=== PATIENT | female | born 1960 | race Caucasian/White ===

== ENCOUNTER → 2020-04-09 10:14 | Outpatient (CLI) | payer OTHER, SELFPAY ==
--- NOTE | ~2020-04-09 | DEXA_ITS ---
Bone Density Report Name: Justin Delarosa Age: 60 Sex: Female Ethnicity: White Date of : 1960 Indication: osteopenia; height loss; Referring Provider: [place], Joanne Cowan Study: Bone densitometry was performed. Exam Date: April 09, 2020 Accession number: [id number] Bone Density: Region BMD T-score Z-score Classification AP Spine (L1-L4) 0.821 -2.1 -0.5 Osteopenia Femoral Neck (Left) 0.727 -1.1 0.3 Osteopenia Total Hip (Left) 0.906 -0.3 0.8 Normal Femoral Neck (Right) 0.718 -1.2 0.2 Osteopenia Total Hip (Right) 0.922 -0.2 0.9 Normal Total Hip Mean 0.914 -0.3 0.9 Normal World Health Organization criteria for BMD impression classify patients as: Normal (T-score at or above -1.0), Osteopenia (T-score between -1.0 and -2.5), or Osteoporosis (T-score at or below -2.5). 10-year Fracture Risk(1): Major Osteoporotic Fracture 7.8% Hip Fracture 0.6% Reported Risk Factors: [place] (), Neck BMD=0.718, BMI=27.5 (1) FRAX(R) Version 3.08. Fracture probability calculated for an untreated patient. Fracture probability may be lower if the patient has received treatment. Previous Exams: Region Exam Age BMD T-score BMD Change BMD Change Date g/cm2 vs Baseline vs Previous AP Spine(L1-L4) 04/09/2020 60 0.821 -2.1 -0.121* -0.087* 01/23/2011 50 0.908 -1.3 -0.035* -0.019 12/02/2009 49 0.927 -1.1 -0.016 -0.016 07/16/2005 45 0.943 -0.9 Total Hip(Left) 04/09/2020 60 0.906 -0.3 -0.062* -0.032* 01/23/2011 50 0.938 0.0 -0.029* -0.025 12/02/2009 49 0.963 0.2 -0.004 -0.004 07/16/2005 45 0.967 0.2 Total Hip(Right) 04/09/2020 60 0.922 -0.2 -0.057* -0.032* 01/23/2011 50 0.954 0.1 -0.025 0.023 12/02/2009 49 0.931 -0.1 -0.049* -0.049* 07/16/2005 45 0.980 0.3 *Denotes significance at 95% confidence level, LSC for AP Spine = 0.022 g/cm2, LSC for Total Hip = 0.027 g/cm2 Clinical Information Provided by Patient: Has used the following medications: Vitamin D, Calcium Patient maximum height was 69 Does not regularly consume dairy products Drinks caffeinated beverages Onset of menses at age 14 Number of children 2 Impression: The patient has low bone mass, based on the Total Spine T-score. The patient has an estimated ten-year risk of
== END ==
PROVIDERS: PCP Physician Assistant; Visit Provider Nurse Practitioner Obstetrics & Gynecology
DX: Z78.0 Asymptomatic menopausal state (principal); M85.88 Other specified disorders of bone density and structure, other site; M85.852 Other specified disorders of bone density and structure, left thigh; M85.851 Other specified disorders of bone density and structure, right thigh
CPT/HCPCS: 77080

== ENCOUNTER 2022-07-27 15:16 | Outpatient (CLI) | payer OTHER, SELFPAY ==
--- NOTE | ~2022-07-27 | DEXA_ITS ---
Bone Density Report Name: JASE KNAPP Age: 62 Sex: Female Ethnicity: White Date of : 1960 Indication: postmenopausal; screening for osteoporosis; prior fracture; Referring Provider: SHALOM, BELLA Cowan Study: Bone densitometry was performed. Exam Date: July 27, 2022 Accession number: [id number] Bone Density: Region BMD T-score Z-score Classification AP Spine(L1-L4) 0.864 -1.7 0.1 Osteopenia Femoral Neck (Left) 0.765 -0.8 0.7 Normal Total Hip (Left) 0.995 0.4 1.6 Normal Femoral Neck (Right) 0.732 -1.0 0.4 Normal Total Hip (Right) 0.982 0.3 1.5 Normal Total Hip Mean 0.988 0.4 1.6 Normal World Health Organization criteria for BMD impression classify patients as: Normal (T-score at or above -1.0), Osteopenia (T-score between -1.0 and -2.5), or Osteoporosis (T-score at or below -2.5). 10-year Fracture Risk(1): Major Osteoporotic Fracture 13% Hip Fracture 0.9% Reported Risk Factors: [place] (), Neck BMD=0.732, BMI=30.2, previous fracture (1) FRAX(R) Version 3.08. Fracture probability calculated for an untreated patient. Fracture probability may be lower if the patient has received treatment. Clinical Information Provided by Patient: Has had a low trauma fracture Has used the following medications: Vitamin D, Calcium Patient maximum height was 68 Menopause Age: 48 Drinks caffeinated beverages Onset of menses at age 11 Number of children 2 Impression: The patient has low bone mass, based on the Total Spine T-score. The patient has an estimated ten-year risk of hip fracture of 0.9% and an estimated ten-year risk of major fracture of 13%, based on the WHO FRAX algorithm. The patient has risk factors, including: previous fracture. Discussion: BONE DENSITY IS LOW AT ONE OR MORE SKELETAL SITES. This patient's lowest T-score is low at one or more skeletal sites. It meets the World Health Organization's (WHO) criteria for ?low bone mass? (T-score between -1.0 and -2.5). The patient's 10-year risk of fracture as calculated by FRAX is less than the threshold where pharmacological therapy is recommended by the National Osteoporosis Foundation (NOF). However, all treatment decisions require clinical judgment and consideration of individual patient factors, including patient preferences, comorbidities, previous drug use, risk factors not captured in the FRAX model (e.g., frailty, falls, vitamin D deficiency, increased bone turnover, interval significant decline in bone density) and possible under or overestimation of fracture risk by FRAX. The patient should follow a healthful lifestyle (good nutrition with adequate calcium and vitamin D, and appropriate weight-bearing exercise). Follow-Up: Consider repeating this study in 2 to 3 years to reassess this patient's
== END 2022-07-27 15:17 | disposition home or self-care (01) ==
PROVIDERS: PCP Physician Assistant; Visit Provider Nurse Practitioner Obstetrics & Gynecology
DX: Z13.820 Encounter for screening for osteoporosis (principal); M85.88 Other specified disorders of bone density and structure, other site
CPT/HCPCS: 77080

== ENCOUNTER 2022-09-24 11:21 | Emergency (ER) | payer OTHER, SELFPAY ==
--- NOTE | ~2022-09-24 | CT_ITS ---
EXAMINATION: CT abdomen pelvis wo con DATE: 09/24/2022 15:14 INDICATION: Back low back pain TECHNIQUE: Computed tomography (CT) of the abdomen and pelvis was performed without intravenous contr ast. The dose-length product (DLP) was 659.09 mGy-cm. Automated exposure control and iterative recons truction technique were employed. COMPARISON: None FINDINGS: Minimal dependent atelectasis is present in the lung bases. The heart size is normal. Punct ate calcifications in an otherwise normal spleen likely represent healed granulomatous disease. The l iver, pancreas, gallbladder, and adrenal glands are normal. There are 2 mm nonobstructing stones of t he left kidney. There is a 2.5 cm cyst of the left kidney. The right kidney is unremarkable. No hydro nephrosis or hydroureter. No pathologically enlarged abdominal or pelvic lymph nodes are identified. No free intraperitoneal gas or evidence of bowel obstruction. There is moderate lumbar spondylosis. IMPRESSION: 1. No CT correlate for the patient's symptoms. 2. Nonobstructing left nephrolithiasis. Reviewed, dictated and finalized at location A. ETING PROFESSIONAL
[2022-09-24 11:56] VITALS: BP 120/73; PULSE 88; RESP 20; TEMP 36.7; O2SAT 96
[2022-09-24 13:53] VITALS: BP 152/97; PULSE 64; RESP 15; O2SAT 98
[2022-09-24 14:15] LABS: Basophils Absolute Auto 0.1 K/mm3 (0.0-0.1); Basophils Percent Auto 0.4 % (0.2-1.2); Eosinophils Percent Auto 0.1 % (0-4.4); Hematocrit 43.4 % (37.0-47.0); Immature Granulocyte Absolute 0.05 K/mm3 (0.00-0.031); Immature Granulocyte Percent A 0.4 % (0-0.5); Lymphocytes Absolute Auto 1.65 K/mm3 (0.9-3.2); Lymphocytes Percent Auto 11.7 % (18.3-44.2); Mean Corpuscular HGB Conc 32.3 g/dl (32-36); Mean Corpuscular Hemoglobin 29.3 pg (26-34); Mean Corpuscular Volume 90.8 fl (80-100); Mean Platelet Volume 10.1 fl (7.4-10.4); Monocytes Absolute Auto 0.5 K/mm3 (0.1-0.6); Monocytes Percent Auto 3.8 % (2.6-8.5); Neutrophils Absolute Auto 11.8 K/mm3 (1.3-6.7); Neutrophils Percent Auto 83.6 % (45.5-73.1); Platelet Count Result 299 k/mm3 (150-375); Red Blood Count 4.78 M/mm3 (4.2-5.4); Red Cell Distribution Width 14.4 % (11.5-14.5); White Blood Count 14.1 K/mm3 (4.5-10.0)
[2022-09-24 14:20] LABS: Appearance Urine Slightly Cloudy (Clear); Bilirubin Urine Negative (Negative); Blood Urine Trace-intact (Negative); Color Urine Yellow (Yellow); Glucose Urine UA Negative (Negative); Ketones Urine Negative (Negative); Leukocyte Esterase Ur Negative LEU/UL (Negative); Nitrate Urine Negative (Negative); Protein Urine 1+ mg/dL (Negative); Specific Grav Ur >= 1.030 (1.001-1.035); Urobilinogen Urine 0.2 mg/dL (<2.0); pH Urine 5.5 (5.0-9.0)
[2022-09-24 14:25] LABS: Alanine Aminotransferase 36 U/L (6-35); Albumin Level 4.9 g/dL (3.5-5.1); Alkaline Phosphatase 115 U/L (38-126); Anion Gap 9 mmol/L (8-16); Aspartate Amino Transferase 33 U/L (14-36); Bilirubin,Total 0.6 mg/dL (0.2-1.3); Blood Urea Nitrogen 13 mg/dL (7-17); Calcium 9.2 mg/dL (8.4-10.2); Carbon Dioxide 26 mmol/L (22-30); Chloride 100 mmol/L (98-107); Estimated CRCL calculation 80 ml/min; Estimated Glomerular Filt Rate > 60; Glucose 118 mg/dL (65-110); Lipase 109 U/L (23-300); Potassium 3.7 mmol/L (3.4-5.0); Sodium 135 mmol/L (137-145)
[2022-09-24 14:33] LABS: Amorphous Sediment Urine Few; Bacteria Urine Trace /hpf; Mucus Urine Heavy /lpf; Squamous Epithelial Cell Urine Rare /hpf (Few)
[2022-09-24 14:38] LABS: Add Urine Microscopic? YES
--- NOTE | 2022-09-24 15:02 | ED.GENADULT ---
HPI - General Adult General Chief complaint: Back Pain/Injury Stated complaint: lower back pain, nausea Time Seen by Provider: 09/24/22 14:00 History of Present Illness HPI narrative: 62-year-old female presented to the emergency department for evaluation of lower back pain and abdominal pain. Patient states yesterday at approximate 11 AM she started having some lower back pain that radiates to the front. Patient states that she did have nausea without vomiting. Patient states he was also having some increased shakiness and queasiness. Patient states the pain is not worsened with movement. Patient denies any falls or injuries. Patient denies any pain with urination Patient denies any prior history of kidney stones Related Data Home Medications Medication Instructions Recorded Confirmed calcium-magnesium [Dolomins] PO 10/28/21 cholecalciferol (vitamin D3) 125 125 mcg PO DAILY 10/28/21 mcg (5,000 unit) capsule ferrous sulfate PO 10/28/21 multivitamin 1 tablet PO DAILY 10/28/21 rosuvastatin 5 mg tablet 5 mg PO DAILY 10/28/21 Allergies Allergy/AdvReac Type Severity Reaction Status Date / Time No Known Allergies Allergy Verified 09/24/22 11:21 Review of Systems Review of Systems: CONSTITUTIONAL: Denies fever, chills, or sweats. EYES: Denies visual changes, redness, or discharge. ENT: Denies rhinorrhea, congestion, sore throat, or otalgia. CARDIOVASCULAR: Denies chest pain, palpitations, or edema. RESPIRATORY: Denies cough or dyspnea. GASTROINTESTINAL: See HPI GENITOURINARY: Denies dysuria or hematuria. SKIN: Denies rash or itching. MUSCULOSKELETAL: Denies back pain, joint pain, or myalgia. NEUROLOGIC: Denies headache, numbness, or weakness. [facility] Past Medical History Medical History High cholesterol Osteopenia Surgical History Surgical History History of breast biopsy History of surgery on arm History of tubal ligation Family History Family History Father Cerebrovascular accident Family history of diabetes mellitus in first degree relative Acute myocardial infarction Mother Cerebrovascular accident Family history of lung cancer Family history of lymphoma Family history of malignant neoplasm of breast in first degree relative Sibling Family history of diabetes mellitus in first degree relative Social History Social History Smoking status: Never smoker Alcohol intake: current Exam Narrative: APPEARANCE: Well appearing, no pain, no distress, well-nourished. HEAD: normocephalic, atraumatic. EYES: PERRLA/EOMI, conjunctivae clear. NOSE: Normal no drainage NECK: Supple. No adenopathy, no masses. RESPIRATORY: Airway patent, respirations nonlabored. Clear to auscultation bilaterally, no rales, rhonchi, wheezing. CARDIOVASCULAR: Regular rate and rhythm without murmurs rubs or gallops. ABDOMINAL: Soft, nontender, nondistended, normal bowel sounds MUSCULOSKELETAL: Moves all extremities. Strength/ROM intact, No edema, No calf tenderness. NEURO: Alert. Cranial nerves II through XII intact. Grossly intact SKIN: Warm, dry. Normal Color Course Course Emergency Course: 62-year-old female with abdominal pain and potential rigors at home. Differential diagnosis included diverticulitis, colitis, kidney stones, pyelonephritis, urinary tract infection. Patient does have a leukocytosis of 14.1. Patient is afebrile. Patient does have proteinuria red blood cells and white blood cells in her urine. CT scan is being done to rule out ureterolithiasis CT scan showed no correlation with the patient's symptoms. Patient will be treated for urinary tract infection. Patient was started on antibiotics in the ED. Vital Signs Vital signs: Vital Signs Temperature 98.0 F
[2022-09-24] MEDS: PHENAZOPYRIDINE HCL 100 MG TABLET 200 MG PO (16:00)
[2022-09-24 16:32] VITALS: BP 133/87; PULSE 85; RESP 17; O2SAT 99
== END 2022-09-24 16:34 | disposition home or self-care (01) ==
PROVIDERS: Emergency Provider Emergency Medicine; PCP Physician Assistant
DX: N39.0 Urinary tract infection, site not specified (principal); M54.50 Low back pain, unspecified; R10.9 Unspecified abdominal pain; M85.80 Other specified disorders of bone density and structure, unspecified site; E78.00 Pure hypercholesterolemia, unspecified
CPT/HCPCS: 36415; 74176; 80053; 81001; 83690; 85025; 87086; 96365; 99284; A9270; J0696

== ENCOUNTER 2025-01-18 11:02 | Outpatient (CLI) | payer MEDICARE, SELFPAY ==
--- NOTE | ~2025-01-18 | DEXA_ITS ---
Bone Density Report Name: JASE KNAPP Age: 64 Sex: Female Ethnicity: White Date of : 1960 Indication: postmenopausal; screening for osteoporosis; Referring Provider: BRENT, YESSENIA Pisano Study: Bone densitometry was performed. Exam Date: January 18, 2025 Accession number: [id number] Bone Density: Region BMD T-score Z-score Classification AP Spine(L1-L4) 0.826 -2.0 -0.1 Osteopenia Femoral Neck (Left) 0.678 -1.5 0.1 Osteopenia Total Hip (Left) 0.919 -0.2 1.1 Normal Femoral Neck (Right) 0.754 -0.9 0.8 Normal Total Hip (Right) 0.914 -0.2 1.1 Normal Total Hip Mean 0.916 -0.2 1.1 Normal World Health Organization criteria for BMD impression classify patients as: Normal (T-score at or above -1.0), Osteopenia (T-score between -1.0 and -2.5), or Osteoporosis (T-score at or below -2.5). 10-year Fracture Risk(1): Major Osteoporotic Fracture 9.2% Hip Fracture 1.1% Reported Risk Factors: [place] (), Neck BMD=0.678, BMI=28.6 (1) FRAX(R) Version 3.08. Fracture probability calculated for an untreated patient. Fracture probability may be lower if the patient has received treatment. Clinical Information Provided by Patient: Has used the following medications: Vitamin D, Calcium Patient maximum height was 68 Menopause Age: 48 Drinks caffeinated beverages Onset of menses at age 11 Number of children 2 Impression: The patient has low bone mass, based on the Total Spine T-score. The patient has an estimated ten-year risk of hip fracture of 1.1% and an estimated ten-year risk of major fracture of 9.2%, based on the WHO FRAX algorithm. Discussion: BONE DENSITY IS LOW AT ONE OR MORE SKELETAL SITES. This patient's lowest T-score is low at one or more skeletal sites. It meets the World Health Organization's (WHO) criteria for ?low bone mass? (T-score between -1.0 and -2.5). The patient's 10-year risk of fracture as calculated by FRAX is less than the threshold where pharmacological therapy is recommended by the National Osteoporosis Foundation (NOF). However, all treatment decisions require clinical judgment and consideration of individual patient factors, including patient preferences, comorbidities, previous drug use, risk factors not captured in the FRAX model (e.g., frailty, falls, vitamin D deficiency, increased bone turnover, interval significant decline in bone density) and possible under or overestimation of fracture risk by FRAX. The patient should follow a healthful lifestyle (good nutrition with adequate calcium and vitamin D, and appropriate weight-bearing exercise). Follow-Up: Consider repeating this study in 2 to 3 years to reassess this patient's status, or sooner if there is some new clinical indication. Reported by: YAHIR on 01/18/2025 11:46:00 AM. Reviewed, dictated and finalized at location A.
--- OUTSIDE RECORDS SUMMARY | 2025-01-18 12:07 | XMS_ITS | Data Portability ---
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 Lab hepatic functio n panel, serum 2023 [employer] [facility], [address], [place], [address], 4 12:02:18 CBC w/ auto diff [address] [facility], [address], [place], [address], 4 12:02:33 BMP, serum or plasma [address] [facility], [address], [place], [address], 4 12:02:47 TSH + free T4, serum [facility], [address], [place], [address], 4 12:01:12 vitamin B12 + folate, serum or blood [facility] [facility], [address], [place], [address], 4 12:03:04 lipid panel, serum 20[address] [facility], [address], [place], [address], 4 12:01:29 HbA1c (hemogl obin A1c), blood 2023 [facility], [address], [place], [address], 4 12:02:00 Referral None recorde d. Procedures None recorde d. Surgeries None recorde d. Imaging None recorde d. Medication Orders rosuvas tatin 5 mg tablet 2023 [facility], [place], [address], 4 11:35:17 Patient TargetsNo targets recorded. Patient Instructions Encounter Date Encounter Id Patient Instructions Last Modified By Organization Details Last Modified Time 06/19/2024 [id number] A healthy lifestyle: care instructions Not available 07/07/2024 10:26:20 Reason for Referral None Reported. Results Created Date Observation Date Name Description Value Unit Range Abnormal Flag Note LastModifiedBy Organization Detail LastModifiedTime Result Notes None recorded. Problems Name Problem SNOMED Code Status Onset Date Resolution Date Notes Provider Name and Address Organization Details Recorded Time Overweight 678632958 Active 2023 RISHABH Victor Attn: Jackson martinez,[address], [place], [address] , [facility] 4 10:26:17 Body mass index 25-29 - overweight 805678357 Active 2023 RISHABH Victor Attn: Jackson martinez,[address] [place], [address], [facility] 4 10:26:18 Long-term drug therapy Active 2023 RISHABH Victor Attn: Jackson martinez,[address] [place], [address], [facility] 4 10:26:38 Hyperlipidemia 62383490 Active 2023 RISHABH Victor Attn: Jackson martinez,[address] [place], [address], [facility] 4 10:26:46 Problem Notes None recorded. Procedures Surgical History Date Name Laterality Status Provider Name and Address Organization Details Recorded Time excision of bilateral fallopian tubes and ovaries completed Ryan Lousi MA [facility] 06/19/2024 11:01:50 Imaging Results None recorded. Procedure Notes None recorded. Medical Equipment None Reported. Allergies No known drug allergies Medications Name Sig Start Date Stop Date Status Note LastModified by Organization Details LastModified Time rosuvastatin 5 mg tablet Take 1 tablet every day by oral route. active Not Available Not Available No t Available Vitamin D active otc Not Available Not Dianne ilable Not Available multivitamin active otc Not Available Not Available Not Available Vitals Date Recorded Systolic blood pressure Diastolic blood pressure Provider Name and Address Organization Details Last Updated DateTime 06/19/2024 130 mm[Hg] 80 mm[Hg] RISHABH Victor Attn: Accounting,[address] [place], [address], [facility] 06/19/2024 11:34:19 Date Recorded Body weight Body mass index (BMI) Body height Respiratory rate Oxygen saturation Oxygen saturation in Arterial blood by Pulse oximetry Heart rate Body temperature Systolic blood pressure Diastolic blood pressure Provider Name and Address Organization Details Last Updated DateTime 4 [address]0650.4 g 27.8 kg/m2 172.72 cm 18 /min 98 % 98 % 71 /min 98.3 [degF] 126 mm[Hg] 82 mm[Hg] Ryan Louis MA [place] - [facility] 11:16:01 Social History Question Answer Notes LastModified by Organizat ion Details LastModified Time Tobacco Smoking Status Never Smoker Ryan Louis MA null, [place] - [facility] 06/19/2024 11:04:02 Do You Have An Advance Directive? Yes Information not available 06/19/2024 Are You Blind Or Do You Have Difficulty Seeing? No Glasses Information not available 06/19/2024 What Is Your Level Of Caffeine Consumption? Moderate Coffee Information not available 06/19/2024 In The 14 Days Before Symptom Onset, Have You Had Close Contact With A Laboratory-confir med COVID-19 While That Case Was Ill? No Information not available 06/19/2024 In The 14 Days Before Symptom Onset, Have You Had Close Contact With A Person Who Is Under Investigation For COVID-19 While That Person Was Ill? No Information not available 06/19/2024 Have You Been To An Area Known To Be High Risk For COVID-19? No Information not available 06/19/2024 Are You Deaf Or Do You Have Serious Difficulty Hearing? No Information not available 06/19/2024 What Type Of Diet Are You Following? REGULAR Information not available 06/19/2024 Are There Any Guns Present In Your Home? No Information not available 06/19/2024 What Was The Date Of Your Most Recent Tobacco Screening? 06/19/2024 Information not available 06/19/2024 Do You Use Your Seat Belt Or Car Seat Routinely? Yes Information not available 06/19/2024 Do You Have Smoke And Carbon Monoxide Detectors In Your Home? Yes Information not available 06/19/2024 Do You Use Sunscreen Routinely? Yes Information not available 06/19/2024 Has Tobacco Cessation Counseling Been Provided? No Information not available 06/19/2024 Sex: Female Functional Status Question Answer Note LastModified by Organizat ion Details LastModified Time Do you use any illicit or recreational drugs? No Information not available 06/19/2024 Do you or have you ever used any other forms of tobacco or nicotine? No Information not available 06/19/2024 What is your level of alcohol consumption? Occasional Information not available 06/19/2024 Are you currently employed? No Information not available 06/19/2024 Are you able to care for yourself? Yes Information n ot available 06/19/2024 What is your exercise level? Occasional Information not available 06/19/2024 Mental Status None recorded. Family History Relationship Description Onset Age of this Age Resolved Age Notes LastModified by Organization Details LastModified Time Mother Family history of breast cancer tcarterma Not available 2023 11:02:46 Mother Cerebrovascu lar accident tcarterma Not available 06/2024 11:02:53 Mother Osteoporosis tcarterma Not avai lable 06/19/2024 11:03:45 Father Cerebrovascu lar accident tcarterma Not available 06/2024 11:02:53 Father Coronary arterioscler osis tcarterma Not available 2023 11:03:06 Father Diabetes mellitus tcarterma Not available 2023 11:03:13 Father Heart disease tcarterma Not available 2023 11:03:18 Father Hypertensive disorder tcarterma Not available 2023 11:03:23 Father Hypercholest erolemia tcarterma Not available 2023 11:03:28 Brother Malignant tumor of colon tcarterma Not available 2023 11:02:59 Brother Diabetes mellitus tcarterma Not available 2023 11:03:13 Sister Kidney disease remova l of her Kindey - tcarterma Not available 06/19/2024 11:12:48 Sister Malignant neoplasm of bone tcarterma Not available 2023 11:12:59 Sister Neoplasm of lung tcarterma Not available 2023 11:13:08 Medical History Condition Response Coronary Artery Disease N Other N High Blood Pressure N Atrial Fibrillation N Kidney or Bladder Problems N Thyroid Problems N GI Problems N Depression N COPD N Blood Clots N Have you had a mammogram in the last yea r? N Skin Problems N Anemia N Heart Attack ([place]) N Anxiety Disorder N Diabetes N Muscle, Joint, or Bone Problems N Seizures/Epilepsy N Have you had a colonoscopy in the last 1 0 years? N Acid Reflux (GERD) N Cancer N Stroke N Asthma N Allergies N Have you had a PSA blood test in the las t year? N High Cholesterol Y Hepatitis N Liver Disease N Headaches N Osteoporosis N Heart Failure N Gynecological History Statement/Question Response Menses Monthly N Obstetrics History GPAL:G 2 P 2 0 0 2 Type Value Full Term 2 Induced 0 Spontaneous 0 Premature 0 Living 2 Total 2 Immunizations Vaccine Type Date Status Note Provider Nam e and Address Organization Details Recorded Time zoster recombinant 2 completed Ryan Louis [place] null, [place] [facility] 06/19/2024 11:04:37 zoster recombinant 2 completed TEO Ornel[place], [place] - [facility] 06/19/2024 11:04:37 COVID-19, mRNA, LNP-S, PF, 30 mcg/0.3 mL dose 1 completed Ryan Louis [place], [place] [facility] 06/19/2024 11:04:37 COVID-19, mRNA, LNP-S, PF, 30 mcg/0.3 mL dose 1 completed Ryan Louis [place] [facility] 06/19/2024 11:04:37 COVID-19, mRNA, LNP-S, PF, 30 mcg/0.3 mL dose 1 completed Ryan Louis [place], [place] [facility] 06/19/2024 11:04:37 COVID-19, mRNA, LNP-S, PF, 30 mcg/0.3 mL dose, alejandro-sucrose 2 completed TEO [place], [place] - [facility] 06/19/2024 11:04:37 COVID-19, mRNA, LNP-S, bivalent, PF, 30 mcg/0.3 mL dose 2 completed TEO [place], [place] - [facility] 06/19/2024 11:04:37 Tdap 5 completed Ryan Louis MA null, [facility] 06/19/2024 11:04:37 Influenza, split virus, trivalent, preservative 1 completed Ryan Louis MA null, [facility] 06/19/2024 11:04:37 Influenza, split virus, quadrivalent, PF 2 completed Ryan Louis MA null, [facility] 06/19/2024 11:04:37 Influenza, high-dose, trivalent, PF 4 completed RISHABH Victor Attn: Accounting,[address] [place], [address], [facility] 07/07/2024 10:26:20 Pneumococcal conjugate PCV20, polysaccharide [id number] conjugate, adjuvant, PF 4 completed RISHABH Victor Attn: Accounting,[address] [place], [address], [facility] 07/07/2024 10:26:20 Past Encounters Encounter ID Performer Location Encounter Start Date Encounter Closed Date Diagnosis/Indication Diagnosis SNOMED-CT Code Diagnosis ICD10 Code Diagnosis Note [id number] Willem Marroquin MD [facility] [address] [place] [address] 06/19/2024 10:43:53 06/19/2024 11:39:17 Adult health examination 857225640 Z00.01 Annual wellness completed Hyperlipidemia 01331054 E78.5 Refill on rosuvastat in 5 mg daily and fasting lipids ordered Diabetes m ellitus screening 114105729 Z13.1 Routine A1c screening due Long-term drug therapy 834852655 Z79.891 All routine labs were ordered Administra tion of influenza vaccine 86614429 Z23 High-dose flu vaccine given in the office today Administra tion of pneumococcal vaccine 75468675 Z23 Prevnar 20 given in the office today Body mass index 25-29 - overweight 338175425 Z68.27 BMI is 27.8 Overweight 160270769 E66 .3 Patient is already making great changes with her diet and exercise Health Concerns Section Related Observation LastModified by Organization Alberto morrison LastModified Time None Recorded Concern Status LastModified by Organization Details LastModified Time None Recorded Advance Directives Directive Y: Payers Insurance Date Sequence Insurance Name Policy Number Policy Baltazar Covered Member ID Baltazar Member ID Guarantor Name 07/18/2024 1 [employer] (MEDICARE REPLACEMENT/ ADVANTAGE - PPO) [id number] Justin Delarosa [id number] Justin Delarosa Notes Date Note Type Note Provider Name and Address Organization Details Recorded Time 4 text/html HyperlipidemiaReported bypatient.Notes:Patient is stable on rosuvastatin 5 mg daily and is due for updated labs Patient would like to have her flu and pneumonia shots today and routine labs ordered RISHABH Victor Attn: Accounting,[address] [place], [address], [facility] 07/07/2024 10:27:23 OBGyn Episode No OBEpisode recorded.
--- OUTSIDE RECORDS SUMMARY | 2025-01-18 12:07 | XMS_ITS | Clinical Summary ---
Author Organization 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 Gender Identity Not on file Sexual Orientation Not on file Plan of Treatment Health Maintenance Due Date Last Done Comments DEXA Bone Density 1960 Hepatitis C Virus (HCV) Screening 1960 Pap Smear 1979 Cervical Cancer Screening (CCS) 02/10/1988 HPV/Cotest 02/10/1988 Colonoscopy 2003 Colorectal Cancer Screening 2003 Cologuard 02/10/2008 Immunochemical Fecal Occult Blood 02/10/2008 Mammogram 02/10/2008 Pneumococcal Immunization (5 0+ years) (1 of 1 - PCV) 02/10/2008 Zoster Immunization (1 of 2) 02/10/2008 Influenza Immunization (#1) 2024 SARS-COV-2 Immunization (2023-25 season) 2024 Respiratory Syncytial Virus (RSV) Immunization (Adult) (1 - 1-dose 75+ series) 2033 DTaP/Tdap/Td Immunization Discontinued 12/09/2014 TdaP Immunization Completed 12/09/2014 Hepatitis B Immunization Aged Out No longer eligible based on patient's age to complete this topic Meningococcal Immunization (ACWY) Aged Out No longer eligible based on patient's age to complete this topic Rotavirus Immunization Aged Out No lo nger eligible based on patient's age to complete this topic
--- OUTSIDE RECORDS SUMMARY | 2025-01-18 12:07 | XMS_ITS | Clinical Summary ---
Author Organization [facility] Address [address] [place] [phone] Care Team Providers Care Clinical Project Coordinator Name Role Phone Batsheva Underwood TEXTILE TECHNOLOGIST Primary Care Provider [phone] Allergies No known active allergies Medications CALCIUM ORAL Take by mouth Active MULTIVITAMIN ORAL Take by mouth Active cholecalciferol (Vitamin D3) 400 unit capsule 11/14/2009 Active rosuvastatin (CRESTOR) 5 mg tablet Take 1 tablet (5 mg total) by mouth daily 90 tablet 3 12/15/2024 Active Active Problems Problem Noted Date Diagnosed Date Screening, anemia, deficiency, iron 12/15/2024 Assessment & Plan (12/15/2024 10:52 AM CDT): Orders: CBC with auto differential; Future Post-menopausal 12/15/2024 Assessment & Plan (12/15/2024 10:52 AM CDT): Orders: Dexa Axial Skeleton Bone Density 1 or 2 Site; Future Need for hepatitis C screening test 12/15/2024 Assessment & Plan (12/15/2024 10:52 AM CDT): Orders: Hepatitis C antibody Blood; Future Screening for colon cancer 12/15/2024 Assessment & Plan (12/15/2024 10:52 AM CDT): Need for hepatitis B screening test 12/15/2024 Assessment & Plan (12/15/2024 10:52 AM CDT): Orders: Hepatitis B surface antibody (immune status) Blood; Future Hepatitis B core antibody, total Blood; Future Hepatitis B Surface Antigen Blood; Future Screening for thyroid disorder 12/15/2024 Assessment & Plan (12/15/2024 10:52 AM CDT): Orders: TSH; Future Overweight with body mass in dex (BMI) of 28 to 28.9 in adult 12/15/2024 Assessment & Plan (12/15/2024 10:52 AM CDT): Encounter for medical examination to establish c are 12/14/2024 Assessment & Plan (12/15/2024 10:52 AM CDT): Edema of foot 12/13/2024 Hearing loss in right ear 12/13/2024 Hyperlipidemia 12/13/2024 Assessment & Plan (12/15/2024 10:52 AM CDT): Orders: Lipid panel; Future Localized radiologic density 12/13/2024 Mass of soft tissue 12/13/2024 Osteopenia 12/13/2024 Assessment & Plan (12/15/2024 10:52 AM CDT): Orders: Dexa Axial Skeleton Bone Density 1 or 2 Site; Future Vitamin D 25 hydroxy; Future Plantar fascial fibromatosis 12/13/2024 Blood glucose abnormal 06/17/2023 Assessment & Plan (12/15/2024 10:52 AM CDT): Orders: Hemoglobin A1c; Future Comprehensive metabolic panel; Future Lower urinary tract symptoms 06/17/2023 Contact dermatitis due to poison reuben 12/23/2021 Dense breast tissue on mammogram 09/26/2020 Atypical lobular hyperplasia of breast 2 Overview (12/13/2024): [facility] March 2012 4.5% 29.4% 04/04/12 EVISTA Encounters Date Type Department Care Team Description 01/15/2025 Telephone [facility] Primary Care at [address] [phone] Batsheva Underwood NP Medical Question/Miscellaneous 12/18/2024 Orders Only [facility] [place] [phone] ProviderJuan MD 12/18/2024 Results Follow-Up [facility] Primary Care at [place] [phone] Batsheva Underwood NP Hepatitis B Surface Antigen Blood, Hepatitis B core antibody, total Blood, Hepatitis B surface antibody (immune status) Blood, Additional followed-up results: 9 12/15/2024 8:40 AM CDT Lab [facility] [place] [address] Need for hepatitis B screening test; Need for hepatitis C screening test; Blood glucose abnormal; Screening, anemia, deficiency, iron; Screening for thyroid disorder; Hyperlipidemia, unspecified hyperlipidemia type; Osteopenia, unspecified location 12/15/2024 8:00 AM CDT Office Visit [facility] Primary Care at [place] [phone] Batsheva Underwood NP Encounter for medical examination to establish care (Primary Dx); Hyperlipidemia, unspecified hyperlipidemia type; Osteopenia, unspecified location; Post-menopausal; Need for hepatitis C screening test; Screening for colon cancer; Need for hepatitis B screening test; Blood glucose abnormal; Screening, anemia, deficiency, iron; Screening for thyroid disorder; Overweight with body mass index (BMI) of 28 to 28.9 in adult 11/30/2024 9:00 AM CDT Office Visit [facility] Care at [address] [phone] Tracey Pizarro NP Strep throat (Primary Dx) from Last 3 Months Immunizations Immunization Administration Dates Next Due Influenza, Quadrivalent, Spl it, Preservative Free, Intramuscular 05/01/2022,05/21/2020,05/18/2019,05/11 Influenza, Trivalent, High D ose, Split, Preservative Free, Intramuscular 06/19/2024 Influenza, Trivalent, IM (MDV) 05/15/2021 Moderna SARS-CoV-2 Monovalen t Vaccination (12+ YRS) 11/26/2020,11/05/2020 Pneumococcal Conjugate Pcv20 06/19/2024 Tdap 05/11/2018,12/09/2014 ZOSTER Recombinant 06/12/2022,04/01/2022 Surgical History Surgery Date Site/Laterality Comments BREAST SURGERY 2011 FRACTURE SURGERY 2012 Family History Medical History Relation Name Comments Cancer Brother Navin Diabetes Father Joe Heart attack Father Joe Heart disease Father Joe Hypertension Father Joe Stroke Father Joe COPD Mother Gerene Cancer Mother Gerene Stroke Mother Gerene COPD Sister Ivanna Cancer Sister Ivanna Kidney disease Sister Ivanna Relation Name Status Comments Brother Navin Father Joe Mother David Sister Ivanna Alive Social History Tobacco Use Types Packs/Day Years Used Date Smoking Tobacco: Never Smokeless Tobacco: Never Tobacco Cessation:Counseling Given: Not Answered PHQ-2 Answer Date Recorded PHQ-2 Total Score (If total score is 3 or more points, staff should administer the PHQ-9) 0 12/15/2024 Comments Unknown Sex and Gender Information Value Date Recorded Sex Assigned at Not on file Legal 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 Gender Identity Not on file Sexual Orientation Not on file Obstetrics History Para Term AB IAB SAB Ectopic Multiple Livin g Live Births 2 2 Date Outcome GA Total Labor Labor/2nd/3rd Weight Sex Type Anes PTL Remedios A1 A5 Name Clin Para Para Last Filed Vital Signs Vital Sign Reading Time Taken Comments Blood Pressure 122/68 12/15/2024 8:07 AM CDT Pulse 62 12/15/2024 8:07 AM CDT Temperature 36.5 C (97.7 F) 11/30/2024 9:13 AM CDT Respiratory Rate 16 11/30/2024 9:13 AM CDT Oxygen Saturation 98% 12/15/2024 8:07 AM CDT Inhaled Oxygen Concentration - - Weight 84.4 kg (186 lb) 12/15/2024 8:07 AM CDT Height 172.7 cm (5' 8) 12/15/2024 8:07 AM CDT Body Mass Index 28.28 12/15/2024 8:07 AM CDT Plan of Treatment Health Maintenance Due Date Last Done Comments Osteoporosis Screening-Bone Density Scan 1960 Covid-19 Vaccine (2023-2 5 season) 2024 06/09/2022, 01/13/2022, 07/17/2021, Additional history exists Breast Cancer Screening-Mammogram 10/19/2025 10/19/2024, 10/19/2024, 10/19/2023, Additional history exists Depression Screening 12/15/2025 12/15/2024 Fall Risk Assessment 12/15/2025 12/15/2024 Well Visit 65+ 12/15/2025 12/15/2024 DTaP/Tdap/Td Vaccine (3 - Td or Tdap) 05/11/2028 05/11/2018, 12/09/2014 Colon Cancer Screening-Colonoscopy 03/06/20292018 Zoster Vaccine Completed 06/12/2022, 04/01/2022 Influenza Vaccine Completed 06/19/2024, , 05/15/2021, Additional history exists Pneumococcal vaccine 65+ Completed 06/19/2024 Hepatitis B Screening Completed 12/15/2024 Hepatitis C Screening Completed 12/15/2024 Procedures Procedure Name Priority Date/Time Associated Diagnosis Comments EGFR Routine 12/15/2024 8:47 AM CDT Blood glucose abnormal DIFFERENTIAL AUTO Routine 12/15/2024 8:4 7 AM CDT Screening, anemia, deficiency, iron VITAMIN D 25 HYDROXY Routine 12/15/2024 8:47 AM CDT Osteopenia, unspecified location HEMOGLOBIN A1C Routine 12/15/2024 8:47 AM CDT Blood glucose abnormal LIPID PANEL Routine 12/15/2024 8:47 AM CDT Hyperlipidemia, unspecified hyperlipidemia type TSH Routine 12/15/2024 8:47 AM CDT Screening for thyroid disorder CBC WITH AUTO DIFFERENTIAL Routine 12/15/2024 8:47 AM CDT Screening, anemia, deficiency, iron COMPREHENSIVE METABOLIC PANEL Routine 12/15/2024 8:47 AM CDT Blood glucose abnormal HEPATITIS C ANTIBODY Routine 12/15/2024 8:47 AM CDT Need for hepatitis C screening test HEPATITIS B SURFACE ANTIBODY (IMMUNE STATUS) Routine 12/15/2024 8:47 AM CDT Need for hepatitis B screening test HEPATITIS B CORE ANTIBODY, TOTAL Routine 12/15/2024 8:47 AM CDT Need for hepatitis B screening test HEPATITIS B SURFACE ANTIGEN Routine 12/15/2024 8:47 AM CDT Need for hepatitis B screening test POCT RAPID STREP Routine 11/30/2024 9:26 AM CDT Strep throat HM COLONOSCOPY Routine 03/06/2019 10:58 AM CDT from Last 3 Months or Most Recently Relevant to Health Maintenance Results * eGFR (12/15/2024 8:47 AM CDT) eGFR 79 >=60 mL/min/1. 73 m2 Comment: Interpretive Data Reference Interval Normal >/= 90 mL/min/1.73m2 Mildly decreased* 60 - 89 mL/min/1.73m2 Mildly to moderately decreased 45 - 59 mL/min/1.73m2 Moderately to severely decreased 30 - 44 mL/min/1.73m2 Severely decreased 15 - 29 mL/min/1.73m2 Kidney Failure < 15 mL/min/1.73m2 *Relative to young adult level Estimated glomerular filtration rate is determined by the 2020 CKD-EPI equation recommended by the National Kidney Foundation (A Unifying Approach to GFR Estimation: Recommendations of the NKF-ASK Task Force on Reassessing the Inclusion of Race in Diagnosing Kidney Disease, JASN 2020). The CKD-EPI equation should not be used for patients with unstable renal function and has not been validated in children and those over 70. Current interpretive data was last reviewed 2021. Testing performed by: [address] [address] Blood 12/15/2024 8:47 AM CDT 12/15/2024 5:01 PM CDT Batsheva Underwood TEXTILE TECHNOLOGIST LAB BLOOD ORDERABLES Final Re sult [address] Department [place] [address] * Differential, auto (12/15/2024 8:47 AM CDT) Neutrophil abs 2.98 1.50 - 6.50 K/cumm Comment:Testing performed by : [address] [address] Imm gran abs 0.01 0.00 - 0.10 K/cumm CERNER Comment:Testing performed by : [address] [address] Lymphocyte abs 2.30 0.80 - 3.30 K/cumm CERNER Comment:Testing performed by : [address] [address] Monocyte abs 0.68 0.20 - 0.80 K/cumm CERNER Comment:Testing performed by : [address] [address] Eosinophil abs 0.29 0.00 - 0.50 K/cumm CERNER Comment:Testing performed by : [address] [address] Basophil abs 0.08 0.00 - 0.10 K/cumm CERNER Comment:Testing performed by : [address] [address] Neutrophil pct 46.9 % CERNER Comment: Interpretive Data Percent cell count reference ranges are not reported, since discordance with absolute values may lead to misinterpretation of CBC data. Current Interpretive Data was last revised on 2017. Testing performed by: [address], [address] Imm gran pct 0.2 % CERNER Comment: Interpretive Data Percent cell count reference ranges are not reported, since discordance with absolute values may lead to misinterpretation of CBC data. Current Interpretive Data was last revised on 2017. Testing performed by: [address] [address] Lymphocyte pct 36.3 % CERNER Comment: Interpretive Data Percent cell count reference ranges are not reported, since discordance with absolute values may lead to misinterpretation of CBC data. Current Interpretive Data was last revised on 2017. Testing performed by: [facility], [address] [place] [address]., [address] Monocyte pct 10.7 % CERNER Comment: Interpretive Data Percent cell count reference ranges are not reported, since discordance with absolute values may lead to misinterpretation of CBC data. Current Interpretive Data was last revised on 2017. Testing performed by: [address] [address] Eosinophil pct 4.6 % CERNER Comment: Interpretive Data Percent cell count reference ranges are not reported, since discordance with absolute values may lead to misinterpretation of CBC data. Current Interpretive Data was last revised on 2017. Testing performed by: [address] [address] Basophil pct 1.3 % CERNER Comment: Interpretive Data Percent cell count reference ranges are not reported, since discordance with absolute values may lead to misinterpretation of CBC data. Current Interpretive Data was last revised on 2017. Testing performed by: [address] [address] Blood 12/15/2024 8:47 AM CDT 12/15/2024 4:12 PM CDT us Batsheva Underwood TEXTILE TECHNOLOGIST LAB BLOOD ORDERABLES Final Re sult COLE HUANG [address] [facility] Department [place] [address] * (ABNORMAL) CBC with auto differential (12/15/2024 8:47 AM CDT) WBC 6.34 3.80 - 9.90 K/cumm Comment:Testing performed by : [address], [address] Hgb 12.3 11.9 - 15.5 g/dL CERNER CH Comment:Testing performed by : [address], [address] Hct 41.3 35.6 - 45.5 % CERNER CH Comment:Testing performed by : [address], [address] Plt 349 150 - 400 K/cumm CERNER CH Comment:Testing performed by : [address], [address] MPV 11.0 9.1 - 12.3 fL CERNER CH Comment:Testing performed by : [address], [address] RBC 4.47 3.90 - 5.20 M/cumm CERNER CH Comment:Testing performed by : [address], [address] MCV 92.4 81.3 - 96.4 fL CERNER CH Comment:Testing performed by : [address], [address] MCH 27.5 27.1 - 33.3 pg CERNER CH Comment:Testing performed by : [address], [address] MCHC 29.8(L) 32.3 - 35.7 g/dL CERNER CH Comment:Testing performed by : [address], [address] RDW CV 15.2(H) 11.1 - 14.9 % CERNER CH Comment:Testing performed by : [address], [address] RDW SD 51.9(H) 35.7 - 48.1 fL CERNER CH Comment:Testing performed by : [address], [address] NRBC abs 0.00 0.00 - 0.01 K/cumm CERNER CH Comment:Testing performed by : [address], [address] Blood 12/15/2024 8:47 AM CDT 12/15/2024 4:12 PM CDT Batsheva Underwood NP LAB BLOOD ORDERABLES Final Re sult Performing Organization Address [facility] Co de Phone Number COLE HUANG [address] [address] Department of Laboratories [place], [place] [phone] * Hepatitis C antibody Blood (12/15/2024 8:47 AM CDT) Hep C Ab Nonreactive Nonreactive Comment: Interpretive Data Nonreactive: Antibodies to HCV not detected. Does NOT exclude the possibility of recent exposure to HCV. Equivocal: Equivocal for HCV antibodies. Supplemental molecular testing will be automatically performed to determine infection status in accordance with current CDC screening recommendations. Reactive: Positive for HCV antibodies. This may represent current or past HCV infection. Supplemental molecular testing will be automatically performed to determine current infection status in accordance with current CDC screening recommendations. Interpretive data was last revised on 2019. Testing performed by: [facility], [address] [place] [address]., [address] Blood 12/15/2024 8:47 AM CDT 12/15/2024 4:12 PM CDT Batsheva Underwood NP LAB MICROBIOLOGY - GENERAL OR DERABLES Final Result Performing Organization Address [facility] de Phone Number COLE [address] [facility] Department [place] [address] * Hepatitis B core antibody, total Blood (12/15/2024 8:47 AM CDT) Hep B core IgG/IgM Nonreactive Nonreactive Comment:Testing performed by : [facility], [address] [place] [address]., [address] Blood 12/15/2024 8:47 AM CDT 12/15/2024 9:40 PM CDT Batsheva Underwood NP LAB MICROBIOLOGY - GENERAL OR DERABLES Final Result Performing Organization Address City/[facility]/ZIP Co de Phone Number COLE [address] [place] [address] * Vitamin D 25 hydroxy (12/15/2024 8:47 AM CDT) [facility] Vitamin D 25-OH 44 30 - 80 ng/mL Comment:Testing performed by : [address] [address] Blood 12/15/2024 8:47 AM CDT 12/15/2024 4:12 PM CDT Batsheva Underwood NP LAB BLOOD ORDERABLES Final Re sult Performing Organization Address [facility] Co de Phone Number COLE [address] [facility] [place] [address] * Hepatitis B surface antibody (immune status) Blood (12/15/2024 8:47 AM CDT) [facility] HBsAb (immune status) Equivocal Comment: Interpretive Data Nonreactive: This result is consistent with a lack of immunity to Hepatitis B Virus when used in the setting of routine screening. Equivocal: The immune status of the individual should be further assessed, if appropriate, after consideration of clinical status, risk factors, and additional diagnostic information. Reactive: This result is consistent with immunity to Hepatitis B Virus when used in the setting of routine screening. Current interpretive data was last revised on 19. Testing performed by: [facility], [address] [place] [address]., [address] Blood 12/15/2024 8:47 AM CDT 12/15/2024 4:12 PM CDT Batsheva Underwood NP LAB MICROBIOLOGY - GENERAL OR DERABLES Final Result Performing Organization Address [facility] Co de Phone Number COLE [address] [place] [address] * Hepatitis B Surface Antigen Blood (12/15/2024 8:47 AM CDT) [facility] HepBsAg Nonreactive Nonreactive Comment:Testing performed by : [address] [address] Blood 12/15/2024 8:47 AM CDT 12/15/2024 4:12 PM CDT Batsheva Underwood NP LAB MICROBIOLOGY - GENERAL OR DERABLES Final Result Performing Organization Address [facility] Co de Phone Number [place] [phone] [facility] [place] [address] * TSH (12/15/2024 8:47 AM CDT) Thyroid Stimulating Hormone 3.96 0.30 - 4.20 mcIUnit/mL Comment:Testing performed by : [address] [address] Blood 12/15/2024 8:47 AM CDT 12/15/2024 4:12 PM CDT Batsheva Underwood NP LAB BLOOD ORDERABLES Final Re sult Performing Organization Address [facility] Co de Phone Number [place] [phone] [facility] [address] * (ABNORMAL) Hemoglobin A1c (12/15/2024 8:47 AM CDT) Hgb A1C 6.0(H) 4.0 - 5.6 % Comment:Testing performed by : [address] [address] Estimated Average Glucose 126 mg/dL COLE Comment: The ADA recommends reporting an estimated Average Glucose (eAG) with all Hemoglobin A1c results using the equation derived from a study of 507 normal and diabetic adults. Minority populations were underrepresented and children were not included. (Diabetes Care 31:4292-1520, 2008). The eAG is not equivalent to a fasting glucose. Testing performed by: [address] [address] Blood 12/15/2024 8:47 AM CDT 12/15/2024 4:12 PM CDT us Batsheva Underwood TEXTILE TECHNOLOGIST LAB BLOOD ORDERABLES Final Re sult COLE [address] [facility] Department [place] [address] * Lipid panel (12/15/2024 8:47 AM CDT) Cholesterol 175 30 - 199 mg/dL Comment: Interpretive Data Ages < or = 19 years Acceptable: <170 mg/dL Borderline high: 170-199 mg/dL High: >or= 200 mg/dL Ages > or = 20 years Desirable: <200 mg/dL Borderline high: 200-239 mg/dL High: >or= 240 mg/dL Literature References: 1. Expert Panel on Integrated Guidelines for Cardiovascular Health and Risk Reduction in Children and Adolescents. Pediatrics 2011;128:S213 2. NCEP Expert Panel. Circulation 2004;110:227 Current Interpretive Data was last revised on 2018. Testing performed by: [address] [address] Triglycerides 89 <=149 mg/dL COLE HUANG Comment: Interpretive Data Ages < or = 9 years Acceptable: <75 mg/dL Borderline high: 75-99 mg/dL High: >or= 100 mg/dL Ages 10 to 20 years Acceptable: <90 mg/dL Borderline high: 90-129 mg/dL High: >or= 130 mg/dL Ages > or = 20 years Desirable: <150 mg/dL Borderline high: 150-199 mg/dL High: 200-499 mg/dL Very high: >or= 499 mg/dL Literature References: 1. Expert Panel on Integrated Guidelines for Cardiovascular Health and Risk Reduction in Children and Adolescents. Pediatrics 2011;128:S213 2. NCEP Expert Panel. Circulation 2004;110:227 Current Interpretive Data was last revised on 2018. Testing performed by: [address] [address] HDL 56 >=40 mg/dL COLE HUANG Comment: Interpretive Data Ages < or = 19 years Acceptable: >45 mg/dL Borderline low: 40-45 mg/dL Low: <40 mg/dL Ages > or = 20 years Desirable: >or= 60 mg/dL Low: <40 mg/dL Literature References: 1. Expert Panel on Integrated Guidelines for Cardiovascular Health and Risk Reduction in Children and Adolescents. Pediatrics 2011;128:S213 2. NCEP Expert Panel. Circulation 2004;110:227 Current Interpretive Data was last revised on 2018. Testing performed by: [facility], [address] [place] [address]., [address] LDL, calculated 103 <=129 mg/dL COLE HUANG Comment: Interpretive Data Ages < or = 19 years Acceptable: <110 mg/dL Borderline high: 110-129 mg/dL High: >or= 130 mg/dL Ages > or = 20 years Optimal: <100 mg/dL Near optimal: 100-129 mg/dL Borderline high: 130-159 mg/dL High: >160 mg/dL Calculated using the Qasim LDL-C estimating equation. This equation was implemented on 2024. Prior to this date LDL-C was estimated using the Friedewald equation. Literature References: 1. Expert Panel on Integrated Guidelines for Cardiovascular Health and Risk Reduction in Children and Adolescents. Pediatrics 2011;128:S213 2. NCEP Expert Panel. Circulation 2004;110:227 3. Qasim Olivier et al. CARTER Cardiol. 2020 December 07;5(5):540-548. doi: 10.1001/[email or web address].2020.0013 Current Interpretive Data was last revised on 2024. Testing performed by: [address] [address] Non-HDL Cholesterol 119 mg/dL COLE HUANG Comment: Interpretive Data Ages < or = 19 years Acceptable: <120 mg/dL Borderline high: 120-144 mg/dL High: >145 mg/dL Ages > or = 20 years When triglycerides are >200 mg/dL, Non-HDL cholesterol is a secondary target of therapy with treatment goals that are 30 mg/dL greater than the LDL cholesterol target. Literature References: 1. Expert Panel on Integrated Guidelines for Cardiovascular Health and Risk Reduction in Children and Adolescents. Pediatrics 2011;128:S213 2. NCEP Expert Panel. Circulation 2004;110:227 Current Interpretive Data was last revised on 2018. Testing performed by: [facility], [address] [place] [address]., [address] Chol/HDL ratio 3 CERNER Comment:Testing performed by : [address] [address] Blood 12/15/2024 8:47 AM CDT 12/15/2024 4:12 PM CDT Batsheva Underwood TEXTILE TECHNOLOGIST LAB BLOOD ORDERABLES Final Re sult [address] Department [place] [address] * Comprehensive metabolic panel (12/15/2024 8:47 AM CDT) Sodium 140 135 - 145 mmol/L Comment:Testing performed by : [address] [address] Potassium, pl 4.5 3.3 - 4.9 mmol/L CERNER Comment:Testing performed by : [address], [address] Chloride 105 97 - 110 mmol/L CERNER Comment:Testing performed by : [address], [address] CO2 26 22 - 32 mmol/L CERNER Comment:Testing performed by : [address] [address] Anion gap 9 2 - 15 mmol/L CERNER Comment:Testing performed by : [address] [address] BUN 14 6 - 25 mg/dL CERNER Comment:Testing performed by : [address], [address] Creatinine 0.82 0.60 - 1.10 mg/dL CERNER Comment:Testing performed by : [address], [address] Glucose 92 70 - 199 mg/dL CERNER Comment: Interpretive Data Fasting glucose >/= 126 mg/dl is diagnostic for diabetes. Fasting is defined as no caloric intake for at least 8 hours. Fasting glucose between 100 mg/dl to 125 mg/dl is diagnostic of prediabetes. In a patient with classic symptoms of hyperglycemia or hyperglycemic crisis, a random glucose >/= 200 mg/dl is diagnostic for diabetes. In the absence of unequivocal hyperglycemia, results should be confirmed by repeat testing. The classification and Diagnosis of Diabetes Diabetes Care 2021; 46: S19-S40. Current interpretive data was last revised 2022. Testing performed by: [facility], [address] [place] [address]., [address] Calcium 9.8 8.5 - 10.3 mg/dL CERNER Comment:Testing performed by : [address] [address] Bilirubin, total 0.2 0.1 - 1.2 mg/dL CERNER Comment:Testing performed by : [address] [address] Protein, pl 7.8 6.5 - 8.5 g/dL CERNER CH Comment:Testing performed by : [address], [address] Albumin 4.1 3.5 - 5.0 g/dL CERNER Comment:Testing performed by : [address] [address] Alk phos 106 40 - 130 Units/L CERNER Comment:Testing performed by : [address], [address] ALT 17 7 - 45 Units/L CERNER Comment:Testing performed by : [address], [address] AST 29 10 - 45 Units/L CERNER Comment:Testing performed by : [address], [address] Blood 12/15/2024 8:47 AM CDT 12/15/2024 4:12 PM CDT us Batsheva Underwood NP LAB BLOOD ORDERABLES Final Re sult [facility] [address] Department [place] [address] * (ABNORMAL) POCT rapid strep A (11/30/2024 9:26 AM CDT) [facility] Rapid Strep A, POC Positive(A ) Negative Swab 11/30/2024 9:26 AM CDT Trcaey Pizarro NP POINT OF CARE TEST ORDERABLES Final Result * HM COLONOSCOPY (03/06/2019 10:58 AM CDT) Historical Provider HEALTH MAINTENANCE Final Result from Last 3 Months or Most Recently Relevant to Health Maintenance Insurance [employer] MED[employer]ARE Care Teams Clinical Project Coordinator Relationship Specialty Start Date End Date Batsheva Underwood NP [address] [place] [address] PCP - General Family Medicine 12/15/24
--- OUTSIDE RECORDS SUMMARY | 2025-01-18 12:08 | XMS_ITS | Clinical Summary ---
Author Organization [employer] Address [address] [place] [address] Care Team Providers Care Lining Inserter Name Role Phone Unavailable Primary Care Provider Unavailabl e Source Comments [facility],non-owned Affiliates and Associated Physician Practices is amultiple site organization consisting of ambulatory clinics and hospital sitesin [place], [place], [place] and [place]. This disclosure is being madepursuant to the Care Everywhere program and may not contain all information available regarding this patient. Last updated 18.[facility] Allergies No known active allergies Medications * Be aware that medications may not be up to date on this document. Alwaysverify current medications with the patient. 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 Gender Identity Not on file Sexual Orientation Not on file Last Filed Vital Signs Vital Sign Reading Time Taken Comments Blood Pressure 112/76 07/18/2017 3:51 PM INFORMATION SYSTEMS AUDITOR Pulse 66 07/18/2017 3:51 PM INFORMATION SYSTEMS AUDITOR Temperature 36.4 C (97.5 F) 07/18/2017 3:51 PM INFORMATION SYSTEMS AUDITOR Respiratory Rate 16 07/18/2017 3:51 PM INFORMATION SYSTEMS AUDITOR Oxygen Saturation 98% 07/18/2017 3:51 PM INFORMATION SYSTEMS AUDITOR Inhaled Oxygen Concentration - - Weight 77.1 kg (170 lb) 07/18/2017 3:51 PM INFORMATION SYSTEMS AUDITOR Height 172.7 cm (5' 8) 07/18/2017 3:51 PM INFORMATION SYSTEMS AUDITOR Body Mass Index 25.85 07/18/2017 3:51 PM INFORMATION SYSTEMS AUDITOR Plan of Treatment Health Maintenance Due Date Last Done Comments BONE DENSITY TESTING 1960 COLOGUARD (AGES 45-75) - COL ON CA SCREENING 1958 COLON MONITORING 1958 COLONOSCOPY - COLON CA SCREENING 1958 CT COLONOGRAPHY - COLON CA SCREENING 1960 Colorectal Cancer Screening 1960 FIT - COLON CA SCREENING 1958 FLEX SIG - COLON CA SCREENING 1958 LIPID TESTING 1960 MAMMOGRAM 1960 HEPATITIS C SCREENING 02/05/1976 DTAP/TDAP/TD VACCINES (1 - Tdap) 1977 PNEUMOCOCCAL VACCINE 50+ (1 of 1 - PCV) 02/10/2008 ZOSTER VACCINE (1 of 2) 02/10/2008 SCREENING FOR DIABETES 07/18/2017 COVID-19 VACCINE (1 - 2023-2 5 season) 2024 DEPRESSION SCREENING 08/09/2024 INFLUENZA VACCINE (Season Ended) 2025 Respiratory Syncytial Virus (RSV) Vaccine Pt: or over 60 yrs (1 - 1-dose 75+ series) 2033 HEPATITIS B VACCINE Aged Out No longe r eligible based on patient's age to complete this topic HIB VACCINE Aged Out No longer eligi ble based on patient's age to complete this topic HPV VACCINE Aged Out No longer eligi ble based on patient's age to complete this topic MENINGOCOCCAL (Group B) VACC INE SHARED DECISION-MAKING Aged Out No longer eligibl e based on patient's age to complete this topic MENINGOCOCCAL GROUPS A/C/Y/W VACCINE Aged Out No longer eligible b ased on patient's age to complete this topic Insurance [email or web address]
--- OUTSIDE RECORDS SUMMARY | 2025-01-18 12:08 | XMS_ITS | Encounter Summary ---
Author Organization [facility] Healthcare Address [address] [place] [address] Care Team Providers Care Quantity Surveyor Name Role Phone Batsheva Underwood NP Primary Care Provider [phone] Reason for Visit * Reason Onset Date Comments Medical Question/Miscellaneous 01/15/2025 Encounter Details Date Type Department Care Team (Late st Contact Info) Description 01/15/2025 Telephone [facility] Primary Care at [address] [place] [phone] Batsheva Underwood, LEARNING CONSULTANT [address] [place] [address] [address] [place] [address] Medical Question/Miscellaneous Social History Tobacco Use Types Packs/Day Years Used Date Smoking Tobacco: Never Smokeless Tobacco: Never PHQ-2 Answer Date Recorded PHQ-2 Total Score (If total score is 3 or more points, staff should administer the PHQ-9) 0 12/15/2024 Comments Unknown Sex and Gender Information Value Date Recorded Sex Assigned at Not on file Legal Sex Female 9:05 AM DIRECTOR HOME HEALTH Gender Identity Not on file Sexual Orientation Not on file documented as of this encounter Miscellaneous Notes * Telephone Encounter - Taylor Townsend MA - 01/15/2025 12:49 PM CDT Returned their call and gave them both dx codes. * Telephone Encounter - Oralia Barajas - 01/15/2025 12:17 PM CDT Medical Question/Miscellaneous Caller???s Concern: They need the diagnosis code for the Dexa bone scan. Please advise Does message need to be routed? Yes-Action Needed documented in this encounter Plan of Treatment Not on file documented as of this encounter Visit Diagnoses Not on filedocumented in this encounter Care Teams Quantity Surveyor Relationship Specialty Start Date End Date Batsheva Underwood NP [address] [address] PCP - General Family Medicine 12/15/24 documented as of this encounter
--- OUTSIDE RECORDS SUMMARY | 2025-01-18 12:08 | XMS_ITS | Clinical Summary ---
Author Organization [facility] Address [address] [place] [address] Phone Care Team Providers Care Warehouse Packer Name Role Phone Bina Alvarenga Primary Care Provider [phone] Allergies No known active allergies Medications MULTIVITAMIN ORALIndications: Abnormal mammogram Take by mouth. Alpha base Active ERGOCALCIFEROL, VITAMIN D2, (VITAMIN D ORAL)Indications :Abnormal mammogram Take by mouth. Active CALCIUM ORALIndications: Abnormal mammogram Take by mouth. Active pedi multivitamins-fl uoride and iron (BABY VITAMINS WITH Fl + Fe) 0.25mg fluoride -10 mg iron/mL Drops Take by mouth. Active rosuvastatin (CRESTOR) 5 mg tablet Take 5 mg by mouth daily at bedtime. Active Active Problems Patient Care Coordination No te Formatting of this note migh t be different from the original. Primary Care: Bina Alvarenga [place] [address] [place] [address] Other: Dr. Yani Loo MD Problem Noted Date Diagnosed Date Family history of breast cancer in mother 2024 Dense breast tissue on mammogram 09/26/2020 Atypical lobular hyperplasia of breast 2 Overview (04/04/2012): [facility] March 2012 4.5% 29.4% 04/04/12 EVISTA Assessment & Plan (10/17/2013 10:58 AM CDT): mamamo Sept MRI breast today On [facility] 1 1/2 year Assessment & Plan (10/19/2012 3:18 PM CDT): Mammo last week On [facility] LALI ROV 1 year Assessment & Plan (04/04/2012 1:16 PM CDT): IOV with [place] Hearing loss in right ear Osteopenia Resolved Problems Problem Noted Date Diagnosed Date Resolved Date Abnormal mammogram 03/01/2012 9 Encounters Date Type Department Care Team Description 12/27/2024 External Device Data STL ABSTRACTION Provider, Abstract 12/26/2024 External Device Data STL ABSTRACTION Provider, Abstract 11/16/2024 Telephone [facility] Breast Surgery [address] [address] [facility] [address] [place] [address] Claudia Gtz, TOMAS Needs Appointment; Needs Orders Written 11/16/2024 Telephone [facility] [address] [facility] [address] [address] Claudia Gtz, RN Needs Orders Written 11/16/2024 Orders Only [facility] [place] [address] [address] [facility] [address] [address] Yani Loo MD Category 3 mammography result with short follow-up interval suggested for probably benign finding (Primary Dx) 11/15/2024 Results Follow-Up [facility] [address] [place] [address] Leidy Zaragoza FNP PATHOLOGY 11/15/2024 Telephone [facility] Breast [facility] [place] [address] [facility] [address] [place] [address] Claudia Gtz, RN Pathology Results 11/09/2024 11:46 AM CDT - 11/09/2024 11:59 PM CDT Hospital Encounter [facility] [place] [address] [place] [phone] Yani Loo MD Discharge Disposition: Home or Self Care 11/09/2024 11:46 AM CDT - 11/09/2024 11:59 PM CDT Hospital Encounter [facility] [place] [address] [place] [phone] Yani Loo MD Discharge Disposition: Home or Self Care 10/25/2024 External Device Data [facility] ABSTRACTION Provider, Abstract 10/24/2024 2:03 PM CDT - 10/24/2024 11:59 PM CDT Hospital Encounter [facility] [place] [place] [phone] Yani Loo MD Discharge Disposition: Home or Self Care 10/24/2024 Chart Note [facility] [address] [place] [address] Mart Cardenas ANP schedule procedure 10/19/2024 11:00 AM CDT Office Visit [facility] Breast [facility] [place] [address] [place] [address] Yani Loo MD Abnormal finding on mammography, microcalcification (Primary Dx); Atypical lobular hyperplasia of breast; Heterogeneously dense tissue of both breasts on mammography; Encounter for screening mammogram for malignant neoplasm of breast; Family history of breast cancer in mother; Abnormality of left breast on screening mammogram 10/19/2024 10:03 AM CDT - 10/19/2024 11:59 PM CDT Hospital Encounter [facility] [address] [place] [phone] Yani Loo MD Discharge Disposition: Home or Self Care from Last 3 Months Family History Medical History Relation Name Comments Breast Cancer Brother Navin Colon cancer Diabetes Brother Navin Diabetes Father 65 Joe Heart Attack Father 65 Joe age 65y [place] Heart Disease Father 65 Joe High Cholesterol Father 65 Joe Stroke Father 65 Joe Diabetes Maternal Grandmother Gerene Diabetes Maternal Uncle Breast Cancer Mother 87 Gerene Lung cancer, l ymphoma Cancer Mother 87 Gerene lung cancer Lung Cancer Mother 87 Gerene Stroke Mother 87 Gerene Breast Cancer Paternal Aunt 1 Coreen Breast Cancer Paternal Aunt 2 x2 Love Breast Cancer Sister Ivanna Kidney cancer, bone tumor, lung tumor Healthy Sister Ivanna COPD Relation Name Status Comments Brother Navin Father 65 Joe Maternal Grandmother Gerene Maternal Uncle Mother 87 Gerene Paternal Aunt 1 Coreen Paternal Aunt 2 x2 Love Sister Ivanna Alive Social History Tobacco Use Types Packs/Day Years Used Date Smoking Tobacco: Never Smokeless Tobacco: Never Alcohol Use Standard Drinks/Week Comments Yes 2 (1 standard drink = 0.6 oz pur e alcohol) moderate Feeling Safe Answer Date Recorded Fear of Current or Ex-Partner Not on file Emotionally Abused Not on file 06/07/2024 Within the last year, have y ou been kicked, hit, slapped, or otherwise physically hurt by your partner or ex-partner? 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 Not on file Not on file Last Filed Vital Signs Vital Sign Reading Time Taken Comments Blood Pressure 128/76 10/19/2024 10:53 AM CDT Pulse 70 06/07/2024 10:08 AM CDT Temperature 36.7 C (98.1 F) 06/07/2024 10:08 AM CDT Respiratory Rate 16 10/17/2013 10:51 AM CDT Oxygen Saturation 98% 06/07/2024 10:08 AM CDT Inhaled Oxygen Concentration - - Weight 84.4 kg (186 lb) 10/19/2024 10:53 AM CDT Height 172.7 cm (5' 8) 10/19/2024 10:53 AM CDT Body Mass Index 28.28 10/19/2024 10:53 AM CDT Plan of Treatment Upcoming Encounters Date Type Department Care Team (Late st Contact Info) Description 06/18/2025 8:15 AM EXCHANGE TROUBLE SHOOTER Appointment [facility] [place] [address] [place] [address] [place] [address] [phone] 06/18/2025 9:45 AM EXCHANGE TROUBLE SHOOTER Appointment [facility] [address] [place] [place] [address] [place] [address] [facility] [address] [place] [address] 06/18/2025 10:30 AM EXCHANGE TROUBLE SHOOTER Office Visit [facility] Hematology [address] [facility] [address] [place] [address] [place] [address] [facility] [address] [place] [address] [place] [address] [address] [place] [address] 10/22/2025 11:30 AM CDT Appointment [facility] [address] [address] [place] [address] [place] [address] [facility] [address] [place] [address] 10/22/2025 12:30 PM CDT Office Visit [facility] Breast Surgery [place] [address] [facility] [address] [place] [address] [place] [address] [facility] [address] [place] [address] Mita Culp, PRINTING GRAY CLOTH TENDER [address] [facility] [address] [place] [address] Health Maintenance Due Date Last Done Comments Pre-Diabetes and Diabetes Screening 1960 FIT-DNA Q 3 years 2003 FIT/FOBT Q 1 year 2003 Flex Sig/CT Colonography Q 5 years 2003 PNEUMOCOCCAL VACCINE 50+ YEA RS (1 of 1 - PCV) 02/10/2008 ZOSTER VACCINE (1 of 2) 02/10/2008 OSTEOPOROSIS SCREENING 2023 INFLUENZA VACCINE (#1) 2024 , 05/21/2020, 05/21/2020, Additional history exists BREAST CANCER SCREENING 10/24/2025 10/25/19, 10/19/2024, 10/19/2023, Additional history exists DTAP/TDAP/TD VACCINES (2 - T d or Tdap) 05/11/2028 05/11/2018 COLORECTAL SCREENING 03/09/2029 03/09/2019, 03/06/2019, 01/07/2019 Colorectal Cancer Screening 03/09/2029 RSV VACCINE (60+ or ) (1 - 1-dose 75+ series) 2033 Procedures Procedure Name Priority Date/Time Associated Diagnosis Comments PATHOLOGY Pathology 11/09/2024 1:19 PM CDT MAMMO POST US/STEREO GUIDED PROCEDURE LT Routine 11/09/2024 1:13 PM CDT Abnormal finding on breast imaging MAMMO 3D WILLIAM & STEREOTACTIC GUIDED BREAST BX LT Routine 11/09/2024 12:50 PM CDT Abnormal finding on breast imaging MAMMO DIAG UNI LEFT 3D WILLIAM W OR WO CAD Routine 10/24/2024 2:21 PM CDT Atypical lobular hyperplasia of breast Heterogeneously dense tissue of both breasts on mammography Encounter for screening mammogram for malignant neoplasm of breast Family history of breast cancer in mother Abnormality of left breast on screening mammogram Abnormal finding on mammography, microcalcification MAMMO 3D WILLIAM SCREEN BILAT W OR WO CAD Routine 10/19/2024 10:25 AM CDT Atypical lobular hyperplasia of breast Heterogeneously dense tissue of both breasts on mammography Encounter for screening mammogram for malignant neoplasm of breast from Last 3 Months Results * PATHOLOGY (11/09/2024 1:19 PM CDT) CASE REPORT Surgical Pathology Report Case: [id number] Authorizing Provider: George Willams MD Collected: 11/09/2024 01:19 PM Ordering Location: [facility] Received: 11/10/2024 07:28 AM [place] Pathologist: Casimiro Shane DO Specimen: Breast, left 1:46 PM CDT [facility] FINAL DIAGNOSIS Breast, left, stereotactic core biopsy: - Fibrocystic changes with usual ductal hyperplasia and columnar cell change. - Pseudoangiomatous stromal hyperplasia--like alterations. - Calcifications present. - No in situ invasive carcinoma identified. 1:46 PM CDT [facility] at 1346 CDT GROSS DESCRIPTION The specimen is received in one container labeled Justin Delarosa and left breast calcification. The lid of the container displays a pinwheel shaped grid corresponding to wells A through L, with checkmarks in wells A, J and K indicating calcifications. Received in wells A, J and K are 3 white-delarosa fibrofatty tissue cores measuring 1.2, 1.4 and 1.5 cm in length and each measuring 0.3 cm in diameter. All are submitted in cassette A1. Received in wells B, C, D, E, F, G, H, I and L are 9 white-yellow fibrofatty tissue cores ranging from 0.9 to 1.7 cm in length and each measuring 0.4 cm in diameter. All are submitted in cassettes A2 through A4. [facility] 1:46 PM CDT [facility] MICROSCOPIC DESCRIPTION The slides are labeled [id number] and Justin Delarosa. Sections of the left breast calcification biopsy show cores of breast tissue with a spectrum of fibrocystic changes including areas of usual ductal hyperplasia and columnar cell change without atypia. Variably nodular areas of fibrous stroma are present, some with pseudoangiomatous stromal hyperplasia--like alterations. Immunostains risky CK5/6 and ER highlight variable expression in the areas of usual ductal hyperplasia. Scattered calcifications are present. In the areas of columnar cell change there is loss of CK5/6 expression in the columnar epithelium and strong nuclear screening for ER. In 1 biopsy core there is a somewhat nodular focus of fibrocystic change associated with variably cellular and slightly myxoid fibrous stroma, concerning for but not diagnostic of a small benign fibroepithelial lesion. Well-developed features of a radial scar not appreciated. And E-cadherin stain demonstrates retained membranous expression in epithelium throughout the tissue. No lobular neoplasia is identified. No in situ or invasive carcinoma is seen. Select slides from this case were reviewed in intradepartmental consultation. 1:46 PM [facility] OPERATIVE PROCEDURE stereotactic biopsy left breast 1:46 PM [facility] CLINICAL INFORMATION Left Breast Calcifications, DDx: Sclerosing adenosis, FCC, FA, papilloma, DCIS. Limited calcs in the tissue samples (A,J,K). Tissue Obtained @ 12:42 In Formalin @ 12:47 calcifications No Dx found. 1:46 PM [facility] COMMENT Special stain, immunohistochemical, and/or in situ hybridization results are interpreted with controls that demonstrate appropriate staining reactions. Note on use of immunohistochemistry reagents and in situ hybridization probes: These tests were developed and their performance characteristics determined by [facility], Department of Laboratory Medicine. It has not been cleared or approved by the U.S. Food and Drug Administration. The FDA has determined that such clearance or approval is not necessary. The test is used for clinical purposes. It should not be regarded as investigational or for research. This laboratory is certified to perform high complexity testing. Frozen section/operating room consultation, gross examination and dissection, and case sign out may have been performed in part or completely in the following laboratories: [facility], CLIA #[id number] [address] [place] [address] [facility], [place] #[id number] [address] [place] [address] [facility], [place] #[id number] [address] [place] [address] This report was created with the [employer] voice-activated dictation system. Inherent to this system is the possibility of syntax, grammar, punctuation and other errors that could impact the interpretation of the report. If there are interpretative questions about aspects of this report, please contact the performing pathologist. 1:46 PM [facility] Tissue LEFT BREAST STRUCTURE / Unknown 11/09/2024 1:19 PM CDT 11/10/2024 7:28 AM CDT Comment:Left Breast Calcific ations, DDx: Sclerosing adenosis, FCC, FA, papilloma, DCIS. Limited calcs in the tissue samples (A,J,K).Tissue Obtained @ 12:42In Formalin @ 12:47 us George Willams MD PATHOLOGY/CYTOLOGY ORDERA BLES Final Result [facility]# [id number] [address] [facility] [address] [address] * MAMMO POST US/STEREO GUIDED PROCEDURE LT (11/09/2024 1:13 PM CDT) Anatomical Region Laterality Modality Breast Left Mammography 11/09/2024 1:13 PM CDT Addenda Addendum by George Willams MD on 11/15/2024 12:56 PM CDT Addendum: Stereotactic guided core biopsy of the left breast performed on 11/09/2024 revealed fibrocystic changes with usual ductal hyperplasia and columnar cell change. Calcifications are present in the tissue samples. There is no evidence of atypia or malignancy. Results are considered benign and are concordant with the imaging findings. A short-term mammographic follow-up is recommended in six months to assess for stability of the residual calcifications near the biopsy site. Impressions 11/09/2024 2:24 PM CDT IMPRESSION: 1. Successful stereotactic core biopsy of the left breast with tissue marker placement. Tissue diagnosis pending. DICTATION LOCATION: [facility] Narrative 11/09/2024 2:24 PM CDT VACUUM-ASSISTED CORE BIOPSY OF THE LEFT BREAST UTILIZING TOMOGRAPHIC AND STEREOTACTIC GUIDANCE, BIOPSY SITE MARKER PLACEMENT, SPECIMEN RADIOGRAPH AND POST PROCEDURE DIAGNOSTIC LEFT MAMMOGRAM DATE: 11/09/2024 12:50 PM HISTORY: Clustered microcalcifications in the inferior subareolar tissues of the left breast. COMPARISON: October 2024 PROCEDURE AND FINDINGS: The risks, potential benefits and alternatives of the procedure were discussed with the patient and written informed consent was obtained. The patient was placed in the prone position on the stereotactic table with the left breast in mediolateral compression and the calcifications in the subareolar tissues were localized and targeted utilizing digital imaging with tomosynthesis and stereotactic guidance. After sterile preparation of the skin, less than 20 cc of lidocaine was utilized for local anesthesia at the skin puncture site and for deeper local anesthesia about the biopsy site. A small skin incision was then made. The vacuum-assisted biopsy needle was advanced to the area of interest utilizing tomographic and stereotactic guidance and multiple tissue cores were obtained. Specimen radiograph are performed. A few calcifications were present in several of the tissue samples. Sampling was technically difficult due to the location of the calcifications within the subareolar tissues with excessive mobility of the anterior breast. Loss of vacuum on the core needle device also caused suboptimal tissue sampling. The needle was removed and hemostasis was achieved. A metallic clip was deployed into the biopsy cavity. Skin glue was applied to the area for closure. A two-view confirmatory full-field digital left mammogram was obtained after the procedure and demonstrated adequate placement of the clip. The patient tolerated the procedure well and there is no evidence of significant immediate complication. The patient was given verbal as well as written postprocedural instructions prior to release from the department. The tissue cores were submitted to surgical pathology in formalin for histologic analysis. us Yani Loo MD MAMMO ORDERABLES Edited Result - Final * MAMMO 3D WILLIAM & STEREOTACTIC GUIDED BREAST BX LT (11/09/2024 12:50 PM CDT) Anatomical Region Laterality Modality Breast Left Ultrasound Tissue SPECIMEN FROM BREAST / Unknown 11/09/2024 1:42 PM CDT Addenda Addendum by George Willams MD on 11/15/2024 12:56 PM CDT Addendum: Stereotactic guided core biopsy of the left breast performed on 11/09/2024 revealed fibrocystic changes with usual ductal hyperplasia and columnar cell change. Calcifications are present in the tissue samples. There is no evidence of atypia or malignancy. Results are considered benign and are concordant with the imaging findings. A short-term mammographic follow-up is recommended in six months to assess for stability of the residual calcifications near the biopsy site. Impressions 11/09/2024 2:24 PM CDT IMPRESSION: 1. Successful stereotactic core biopsy of the left breast with tissue marker placement. Tissue diagnosis pending. DICTATION LOCATION: [facility] 11/09/2024 2:24 PM CDT VACUUM-ASSISTED CORE BIOPSY OF THE LEFT BREAST UTILIZING TOMOGRAPHIC AND STEREOTACTIC GUIDANCE, BIOPSY SITE MARKER PLACEMENT, SPECIMEN RADIOGRAPH AND POST PROCEDURE DIAGNOSTIC LEFT MAMMOGRAM DATE: 11/09/2024 12:50 PM HISTORY: Clustered microcalcifications in the inferior subareolar tissues of the left breast. COMPARISON: October 2024 PROCEDURE AND FINDINGS: The risks, potential benefits and alternatives of the procedure were discussed with the patient and written informed consent was obtained. The patient was placed in the prone position on the stereotactic table with the left breast in mediolateral compression and the calcifications in the subareolar tissues were localized and targeted utilizing digital imaging with tomosynthesis and stereotactic guidance. After sterile preparation of the skin, less than 20 cc of lidocaine was utilized for local anesthesia at the skin puncture site and for deeper local anesthesia about the biopsy site. A small skin incision was then made. The vacuum-assisted biopsy needle was advanced to the area of interest utilizing tomographic and stereotactic guidance and multiple tissue cores were obtained. Specimen radiograph are performed. A few calcifications were present in several of the tissue samples. Sampling was technically difficult due to the location of the calcifications within the subareolar tissues with excessive mobility of the anterior breast. Loss of vacuum on the core needle device also caused suboptimal tissue sampling. The needle was removed and hemostasis was achieved. A metallic clip was deployed into the biopsy cavity. Skin glue was applied to the area for closure. A two-view confirmatory full-field digital left mammogram was obtained after the procedure and demonstrated adequate placement of the clip. The patient tolerated the procedure well and there is no evidence of significant immediate complication. The patient was given verbal as well as written postprocedural instructions prior to release from the department. The tissue cores were submitted to surgical pathology in formalin for histologic analysis. us Yani Loo MD MAMMO ORDERABLES Edited Result - Final * (ABNORMAL) MAMMO 3D WILLIAM DIAGNOSTIC UNI LT W OR WO CAD (10/24/2024 2:21 PM CDT) Anatomical Region Laterality Modality Breast Left Mammography 10/24/2024 2:21 PM CDT Impressions 10/24/2024 2:34 PM CDT IMPRESSION: Indeterminate grouped calcifications in the inferior subareolar left breast. Stereotactic biopsy of these calcifications is recommended for tissue diagnosis. OVERALL FINAL ASSESSMENT: BI-RADS CATEGORY 4 - Suspicious for malignancy. DICTATION LOCATION: [facility] 10/24/2024 2:34 PM CDT EXAMINATION: UNILATERAL LEFT DIAGNOSTIC DIGITAL MAMMOGRAPHY WITH TOMOSYNTHESIS AND CAD DATE: 10/24/2024 2:21 PM HISTORY: 64-year-old female recalled from screening mammography for calcifications in the left breast. COMPARISON: Mammography with dates ranging from 10/19/2024 to 09/26/2020. TECHNIQUE: A diagnostic left mammogram was performed. Low-dose full-field digital breast tomosynthesis examination was performed with 2D and 3D acquisitions. Examination is read in conjunction with computer aided detection. BREAST COMPOSITION: The left breast is heterogeneously dense, which may obscure small masses. FINDINGS: There are grouped round and punctate calcifications spanning 9 mm in the inferior subareolar left breast. There is no evidence of a suspicious mass or architectural distortion associated with these calcifications. There are no other suspicious findings in the left breast. Yanimarco Loo MD MAMMO ORDERABLES Final R esult * MAMMO 3D WILLIAM SCREEN BILAT W OR WO CAD (10/19/2024 10:25 AM CDT) Anatomical Region Laterality Modality Breast Bilateral Mammography 10/19/2024 10:2 5 AM CDT Impressions 10/19/2024 11:29 AM CDT IMPRESSION: The grouped microcalcifications in the left left subareolar region. No evidence of malignancy in the right breast. RECOMMENDATIONS: Left spot magnification views. Left breast overall assessment: BI-RADS category 0. Incomplete study. Need additional imaging evaluation. Right breast overall assessment: BI-RADS Category 1. Negative. DICTATION LOCATION: [facility] 10/19/2024 11:29 AM CDT BILATERAL SCREENING DIGITAL MAMMOGRAMS WITH COMPUTER ASSISTED DIAGNOSIS WITH TOMOGRAPHY DATE: 10/19/2024 10:25 AM HISTORY: Routine screening mammogram. . COMPARISON: 10/19/2023 and 10/15/2022. TECHNIQUE: A bilateral screening mammogram was performed. Low-dose full-field digital breast tomosynthesis examination was performed with 2D and 3D acquisitions. Examination is read in conjunction with computer aided detection. BREAST COMPOSITION: Heterogeneously dense, which limits the sensitivity of mammography. FINDINGS: The grouped microcalcifications in the left subareolar region slightly inferior central aspect are visualized. No architectural distortion is identified. No new masses, suspicious calcifications or areas of asymmetry or distortion are identified in the right breast. The images were reviewed using the CAD system. us Yani Loo MD MAMMO ORDERABLES Final R esult from Last 3 Months Insurance [employer] PPO MCR Advance Directives For more information, please contact: [phone] * Full Code (Latest Code Status on File) Date Activated Date Inactivated Comments 03/23/2012 8:03 AM 03/23/2012 1:42 PM Care Teams Warehouse Packer Relationship Specialty Start Date End Date Bina Alvarenga PA PCP - General Physician Demand Planning Analyst 05/25/16
--- OUTSIDE RECORDS SUMMARY | 2025-01-18 12:08 | XMS_ITS | Referral Summary ---
Author Organization [address] Address [address] [place] [id number] Care Team Providers Care Manager Of Administration Name Role Phone Batsheva Underwood ASSOCIATE CHEMIST Primary Care Provider [phone] Encounters Date Type Department Care Team Description 01/15/2025 Telephone [facility] Primary Care at [address] [phone] Batsheva Underwood NP Medical Question/Miscellaneous 12/18/2024 Orders Only [facility] Primary Care at [address] [phone] ProviderJuan MD 12/18/2024 Results Follow-Up [facility] Primary Care at [address] [phone] Batsheva Underwood NP Hepatitis B Surface Antigen Blood, Hepatitis B core antibody, total Blood, Hepatitis B surface antibody (immune status) Blood, Additional followed-up results: 9 12/15/2024 8:40 AM CDT [facility] Out[facility] - [facility] at [place] [id number] Need for hepatitis B screening test; Need for hepatitis C screening test; Blood glucose abnormal; Screening, anemia, deficiency, iron; Screening for thyroid disorder; Hyperlipidemia, unspecified hyperlipidemia type; Osteopenia, unspecified location 12/15/2024 8:00 AM CDT Office Visit [facility] [place] [address] [place] [phone] Batsheva Underwood NP Encounter for medical examination [...] adult 11/30/2024 9:00 AM CDT Office Visit [facility] at [address] [phone] Tracey Pizarro NP Strep throat (Primary Dx) from Last 3 Months Allergies No known active allergies Medications CALCIUM [...] ALH March 2012 4.5% 29.4% 04/04/12 EVISTA Immunizations Immunization Administration Dates Next Due Influenza, Quadrivalent, Spl it, Preservative Free, Intramuscular 05/01/2022,05/21/2020,05/18/2019,05/11 Influenza, Trivalent, High D ose, Split, Preservative Free, Intramuscular 06/19/2024 Influenza, Trivalent, IM (MDV) 05/15/2021 Moderna SARS-CoV-2 Monovalen t Vaccination (12+ YRS) 11/26/2020,11/05/2020 Pneumococcal Conjugate Pcv20 06/19/2024 Tdap 05/11/2018,12/09/2014 ZOSTER Recombinant 06/12/2022,04/01/2022 Social History Tobacco Use Types Packs/Day Years Used Date Smoking Tobacco: Never Smokeless Tobacco: Never Tobacco Cessation:Counseling Given: Not Answered PHQ-2 Answer Date Recorded PHQ-2 Total Score (If total score is 3 or more points, staff should administer the PHQ-9) 0 12/15/2024 Comments Unknown Sex and Gender Information Value Date Recorded Sex Assigned at Not on file Legal Sex Female 9:05 AM PERSONAL CARE AIDE Gender Identity Not on file Sexual Orientation [...] 12/15/2024 8:07 AM CDT Plan of Treatment Not on file Procedures Procedure Name Priority Date/Time Associated Diagnosis [...] was last reviewed 2021. Testing performed by: [address] [id number] Blood 12/15/2024 8:47 AM CDT 12/15/2024 5:01 PM CDT us Batsheva Underwood ASSOCIATE CHEMIST LAB BLOOD ORDERABLES Final Re sult [address] Department [place] [address] * Differential, auto (12/15/2024 8:47 AM CDT) Neutrophil abs 2.98 1.50 - 6.50 K/cumm Comment:Testing performed by : [address] [address] Imm gran abs 0.01 0.00 - 0.10 K/cumm [facility] Comment:Testing performed by : [address], [address] Lymphocyte abs 2.30 0.80 - 3.30 K/cumm [facility] Comment:Testing performed by : [address] [address] Monocyte abs 0.68 0.20 - 0.80 K/cumm [facility] Comment:Testing performed by : [address], [address] Eosinophil abs 0.29 0.00 - 0.50 K/cumm [facility] Comment:Testing performed by : [address], [address] Basophil abs 0.08 0.00 - 0.10 K/cumm [facility] Comment:Testing performed by : [facility], [address] [place] [address]., [address] Neutrophil pct 46.9 % [facility] Comment: Interpretive Data Percent cell count reference ranges are not reported, since discordance with absolute values may lead to misinterpretation of CBC data. Current Interpretive Data was last revised on 2017. Testing performed by: [facility], [address] [place] [address]., [address] Imm gran pct 0.2 % [facility] Comment: Interpretive Data Percent cell count reference ranges are not reported, since discordance with absolute values may lead to misinterpretation of CBC data. Current Interpretive Data was last revised on 2017. Testing performed by: [address] [address] Lymphocyte pct 36.3 % [facility] Comment: Interpretive Data Percent cell count reference ranges are not reported, since discordance with absolute values may lead to misinterpretation of CBC data. Current Interpretive Data was last revised on 2017. Testing performed by: [address] [address] Monocyte pct 10.7 % [facility] Comment: Interpretive Data Percent cell count reference ranges are not reported, since discordance with absolute values may lead to misinterpretation of CBC data. Current Interpretive Data was last revised on 2017. Testing performed by: [address] [address] Eosinophil pct 4.6 % [facility] Comment: Interpretive Data Percent cell count reference ranges are not reported, since discordance with absolute values may lead to misinterpretation of CBC data. Current Interpretive Data was last revised on 2017. Testing performed by: [address] [address] Basophil pct 1.3 % [facility] Comment: Interpretive Data Percent cell count reference ranges are not reported, since discordance with absolute values may lead to misinterpretation of CBC data. Current Interpretive Data was last revised on 2017. Testing performed by: [address] [address] Blood 12/15/2024 8:47 AM CDT 12/15/2024 4:12 PM CDT us Batsheva Underwood ASSOCIATE CHEMIST LAB BLOOD ORDERABLES Final Re sult [address] Department [place] [address] * (ABNORMAL) CBC with auto differential (12/15/2024 8:47 AM CDT) WBC 6.34 3.80 - 9.90 K/cumm Comment:Testing performed by : [address], [address] Hgb 12.3 11.9 - 15.5 g/dL [facility] Comment:Testing performed by : [address], [address] Hct 41.3 35.6 - 45.5 % [facility] Comment:Testing performed by : [address], [address] Plt 349 150 - 400 K/cumm [facility] Comment:Testing performed by : [address], [address] MPV 11.0 9.1 - 12.3 fL [facility] Comment:Testing performed by : [address], [address] RBC 4.47 3.90 - 5.20 M/cumm [facility] Comment:Testing performed by : [address], [address] MCV 92.4 81.3 - 96.4 fL [facility] Comment:Testing performed by : [address], [address] MCH 27.5 27.1 - 33.3 pg [facility] Comment:Testing performed by : [address], [address] MCHC 29.8(L) 32.3 - 35.7 g/dL [facility] Comment:Testing performed by : [address], [address] RDW CV 15.2(H) 11.1 - 14.9 % [facility] Comment:Testing performed by : [address], [address] RDW SD 51.9(H) 35.7 - 48.1 fL [facility] Comment:Testing performed by : [facility], [address] [place] [address]., [address] NRBC abs 0.00 0.00 - 0.01 K/cumm [facility] Comment:Testing performed by : [facility], [address] [place] [address]., [address] Blood 12/15/2024 8:47 AM CDT 12/15/2024 4:12 PM CDT Batsheva Underwood NP LAB BLOOD ORDERABLES Final Re sult Performing Organization Address [facility] Co de Phone Number COLE [facility] [place] [address] * Hepatitis C antibody Blood (12/15/2024 8:47 [...] last revised on 2019. Testing performed by: [facility], [address] [place] [address], [address] Blood 12/15/2024 8:47 AM CDT 12/15/2024 4:12 PM CDT Batsheva Underwood NP LAB MICROBIOLOGY - GENERAL OR DERABLES Final Result Performing Organization Address [facility] Co de Phone Number COLE [address] [facility] [place] [address] * Hepatitis B core antibody, total Blood (12/15/2024 8:47 AM CDT) Hep B core IgG/IgM Nonreactive Nonreactive Comment:Testing performed by : [facility], [address] [place]., [address] Blood 12/15/2024 8:47 AM CDT 12/15/2024 9:40 PM CDT Batsheva Underwood NP LAB MICROBIOLOGY - GENERAL OR DERABLES Final Result Performing Organization Address [facility]/ZIP Co de Phone Number COLE HUANG [address] [address] [employer] [place] [address] * Vitamin D 25 hydroxy (12/15/2024 8:47 AM CDT) Vitamin D 25-OH 44 30 - 80 ng/mL Comment:Testing performed by : [facility], [address] [place] [address]., [address] Blood 12/15/2024 8:47 AM CDT 12/15/2024 4:12 PM CDT Batsheva Underwood NP LAB BLOOD ORDERABLES Final Re sult Performing Organization Address [facility] Co de Phone Number COLE [address] [facility] [place] [address] * Hepatitis B surface antibody (immune status) Blood (12/15/2024 8:47 AM CDT) HBsAb (immune status) Equivocal Comment: Interpretive Data [...] last revised on 19. Testing performed by: [address] [address] Blood 12/15/2024 8:47 AM CDT 12/15/2024 4:12 PM CDT Batsheva Underwood NP LAB MICROBIOLOGY - GENERAL OR DERABLES Final Result Performing Organization Address [facility] Co de Phone Number LEONARDORIKI [address] [address] [facility] [employer] [place] [address] * Hepatitis B Surface Antigen Blood (12/15/2024 8:47 AM CDT) HepBsAg Nonreactive Nonreactive Comment:Testing performed by : [address], [address] Blood 12/15/2024 8:47 AM CDT 12/15/2024 4:12 PM CDT Batsheva Underwood NP LAB MICROBIOLOGY - GENERAL OR DERABLES Final Result Performing Organization Address [facility] de Phone Number COLE [address] [address] [employer] [place] [address] * TSH (12/15/2024 8:47 AM CDT) [facility] Thyroid Stimulating Hormone 3.96 0.30 - 4.20 mcIUnit/mL Comment:Testing performed by : [address], [address] Blood 12/15/2024 8:47 AM CDT 12/15/2024 4:12 PM CDT Batsheva Underwood NP LAB BLOOD ORDERABLES Final Re sult Performing Organization Address [facility] Co de Phone Number LEONARDORIKI [address] [address] [facility] [employer] [place] [address] * (ABNORMAL) Hemoglobin A1c (12/15/2024 8:47 AM CDT) [facility] Hgb A1C 6.0(H) 4.0 - 5.6 % Comment:Testing performed by : [address] [address] Estimated Average Glucose 126 mg/dL [facility]LE HUANG Comment: The ADA recommends reporting an estimated Average Glucose (eAG) with all Hemoglobin A1c results using the equation derived from a study of 507 normal and diabetic adults. Minority populations were underrepresented and children were not included. (Diabetes Care 31:5189-8607, 2008). The eAG is not equivalent to a fasting glucose. Testing performed by: [facility], [address] [place] [address]., [address] Blood 12/15/2024 8:47 AM CDT 12/15/2024 4:12 PM CDT us Batsheva Underwood NP LAB BLOOD ORDERABLES Final Re sult CO[facility] [address] Department [place] [address] * Lipid panel (12/15/2024 8:47 AM CDT) [...] last revised on 2018. Testing performed by: [facility], [address] [place] [address]., [address] Triglycerides 89 <=149 mg/dL [facility] HUANG Comment: [...] last revised on 2018. Testing performed by: [facility], [address] [place] [address]., [address] HDL 56 >=40 mg/dL [facility] Comment: Interpretive Data Ages < or = [...] last revised on 2018. Testing performed by: [address] [address] LDL, calculated 103 <=129 mg/dL [facility] Comment: Interpretive Data Ages < or = [...] last revised on 2024. Testing performed by: [address] [address] Non-HDL Cholesterol 119 mg/dL [facility] Comment: Interpretive Data Ages < or = [...] last revised on 2018. Testing performed by: [address] [address] Chol/HDL ratio 3 [facility] Comment:Testing performed by : [address] [address] Blood 12/15/2024 8:47 AM CDT 12/15/2024 4:12 PM CDT us Batsheva Underwood ASSOCIATE CHEMIST LAB BLOOD ORDERABLES Final Re sult [address] Department [place] [address] * Comprehensive metabolic panel (12/15/2024 8:47 AM CDT) Sodium 140 135 - 145 mmol/L Comment:Testing performed by : [address] [address] Potassium, pl 4.5 3.3 - 4.9 mmol/L [facility] Comment:Testing performed by : [address] [address] Chloride 105 97 - 110 mmol/L [facility] Comment:Testing performed by : [address] [address] CO2 26 22 - 32 mmol/L [facility] Comment:Testing performed by : [address] [address] Anion gap 9 2 - 15 mmol/L [facility] Comment:Testing performed by : [address] [address] BUN 14 6 - 25 mg/dL [facility] Comment:Testing performed by : [address], [address] Creatinine 0.82 0.60 - 1.10 mg/dL [facility] Comment:Testing performed by : [address] [address] Glucose 92 70 - 199 mg/dL [facility] Comment: Interpretive Data Fasting glucose >/= 126 [...] was last revised 2022. Testing performed by: [address] [address] Calcium 9.8 8.5 - 10.3 mg/dL [facility] Comment:Testing performed by : [address], [address] Bilirubin, total 0.2 0.1 - 1.2 mg/dL [facility] Comment:Testing performed by : [address] [address] Protein, pl 7.8 6.5 - 8.5 g/dL [facility] Comment:Testing performed by : [address] [address] Albumin 4.1 3.5 - 5.0 g/dL [facility] Comment:Testing performed by : [address] [address] Alk phos 106 40 - 130 Units/L [facility] Comment:Testing performed by : [address] [address] ALT 17 7 - 45 Units/L [facility] Comment:Testing performed by : [address], [address] AST 29 10 - 45 Units/L [facility] Comment:Testing performed by : [address] [address] Blood 12/15/2024 8:47 AM CDT 12/15/2024 4:12 PM CDT us Batsheva Underwood ASSOCIATE CHEMIST LAB BLOOD ORDERABLES Final Re sult COLE HUANG [address] [address] Department [place] [address] * (ABNORMAL) POCT rapid strep A (11/30/2024 9:26 AM CDT) Rapid Strep A, POC Positive(A ) Negative Swab 11/30/2024 9:26 AM CDT us Tracey Pizarro NP POINT OF CARE TEST ORDERABLES Final Result * COLONOSCOPY (03/06/2019 10:58 AM CDT) Historical Provider MD HEALTH MAINTENANCE Final Result from Last 3 Months or Most Recently Relevant to Health Maintenance Insurance T MEDICARE Care Teams Manager Of Administration Relationship Specialty Start Date End Date Batsheva Underwood NP [address] [facility] [address] [phone] PCP - General Family Medicine 12/15/24
--- OUTSIDE RECORDS SUMMARY | 2025-01-18 12:08 | XMS_ITS | Data Portability ---
Author Organization [facility] [place] Address [address] [place] [address] Assessment Encounter Date Assessment Date Assessment LastModified by Organization Details LastModified Time 06/26/2021 06/26/2021 Annual gynecological exam performed. Patient will come back in a year unless there are new symptoms. Not available 06/25/2021 22:23:57 06/29/2022 06/29/2022 Annual gynecological exam performed. Patient will come back in a year unless there are new symptoms. [email or web address] Not available 06/29/2022 10:59:44 01/06/2024 01/06/2024 Annual gynecological exam performed. Patient will come back in a year unless there are new symptoms. Not available 01/06/2024 14:33:23 Plan of Treatment Reminders Order Date Submit Date Provider Last Modified By Organization Details Last Modified Time Details Appointments None recorded. Lab None recorded. Referral None recorded. Procedures None recorded. Surgeries None recorded. Imaging DEXA, axial skeleton + vertebral fracture assessment 2021 022 [facility], [address], [place], [address], 16:25:16 Medication Orders None recorded. Patient TargetsNo targets recorded. Patient InstructionsNo instructions recorded. Reason for Referral None Reported. Results Created Date Observation Date Name Description Value Unit Range Abnormal Flag Note LastModifiedBy Organization Detail LastModifiedTime 06/29/2006/29/2022 IMAGE GUIDE D PAP AND HPV REGAR DLESS image guided Pap, HPV regardless of Pap result SEE RESULT S BELOW CASE REPOR T: Cytol ogy Gynec ologi carlos Repor t Case: [id number] Autho daina juan Provi jordan: Yony garcia , Gui Gonzalez cted: 06/29 1549 CALL OUT OPERATOR Order ing Locat ion: [place] Patho logy Recei len: 06/30 0402 First Scree n: [place] parmar, Jefry tillman, CT Speci men: Missy padron Pap - Image d, Cervi x STATE MENT OF ADEQU ACY: Satis facto ry for evalu ation Trans forma tion zone compo nent prese nt FINAL DIAGN OSIS: Negat ramya for Intra epith elial Lesio n or Bethany carbajal (NIL) . Atrop hy prese nt. Elect phoebe gant bertha d by [place] parmar, Jefry tillman, CT on 07/01 at 9:49 PM ----- ----- ----- ----- ----- ----- ----- ----- ----- ----- ----- ----- ----- ----- ----- ----- ----- ---- HPV RESUL TS: HPV mRNA E6/E7 : No HPV mRNA Detec ray NOTE: This high risk HPV mRNA assay detec ts fourt een high- risk HPV types (16, 18, 31, 33, 35, 39, 45, 51, 52, 56, 58, 59, 66, 68) witho ut diffe renti ation . COMME NT: Note: This speci men was revie wed by a Cytot echno logis t and/o r Patho logis t (as indic ated in this repor t) after evalu ation using the Thinp rep Imagi ng Syste m. CLINI CARLOS INFOR MATIO N: Menst rual Statu s: LMP (if appli cable ): Clini carlos Histo ry/Pr eviou s Pap: Type of Neopl betty (if appli cable ): Signi fican t Clini carlos Findi ngs: Other Histo ry: Hormo clara (if appli cable ): PAP EDUCA TANI L NOTE: The Pap Test is a scree vito test with an inher ent false negat ramya rate. Liqui d-bas ed sampl ing may decre ase, but will not elimi von, false negat ramya resul ts. A negat ramya resul t does not precl ude the prese nce and/o r devel opmen t of disea se, since the prese nce of abnor mal cells in the sampl e depen ds on the locat ion of the lesio n and sampl ing techn ique. Case nued regul ar scree vito is the best metho d of cance r preve ntion . If repor ray cytol ogic findi ng do not corre late with physi carlos and/o r histo rical findi ngs, furth er inves tigat ion is recom marge d, as clini [place] nted. Not Available [facility] (Lab) [address], [place], [address], 07/01/2022 22:52:23 01/06/20 24 01/06/2024 IMAGE GUIDE D PAP AND HPV REGAR DLESS image guided Pap, HPV regardless of Pap result SEE RESULT S BELOW CASE REPOR T: Cytol ogy Gynec ologi carlos Repor t Case: [id number] Autho daina martinez Provi jordan: David Vasquez Colle cted: 01/05 1704 CALL OUT OPERATOR Order ing Locat ion: [place] Patho logy Recei len: 01/06 0224 First Scree n: Shemar Desai , CT Speci men: Scree vito Pap - Image d, Cervi x STATE MENT OF ADEQU ACY: Satis facto ry for evalu ation Trans forma tion zone compo nent prese nt ----- ----- ----- ----- ----- ----- ----- ----- ----- ----- ----- ----- ----- ----- ----- ----- ----- ---- FINAL DIAGN OSIS: Negat ramya for Intra epith elial Lesio n or Bethany carbajal (NIL) . Atrop hy prese nt. Elect phoebe stone d by Shemar Desai CT on 024 at 2:10 PM ----- ----- ----- ----- ----- ----- ----- ----- ----- ----- ----- ----- ----- ----- ----- ----- ----- ---- HPV RESUL TS: HPV mRNA E6/E7 : No HPV mRNA Detec ray NOTE: This high risk HPV mRNA assay detec ts fourt een high- risk HPV types (16, 18, 31, 33, 35, 39, 45, 51, 52, 56, 58, 59, 66, 68) witho ut diffe renti ation . COMME NT: This speci men was revie wed by a Cytot echno logis t and/o r Patho logis t (as indic ated in this repor t) after evalu ation using the Thinp rep Imagi ng Syste m. CLINI CARLOS INFOR MATIO N: Menst rual Statu s: LMP (if appli cable ): Clini carlos Histo ry/Pr eviou s Pap: Type of Neopl betty (if appli cable ): Signi fican t Clini carlos Findi ngs: Other Histo ry: Hormo clara (if appli cable ): PAP EDUCA TANI L NOTE: The Pap Test is a scree vito test with an inher ent false negat ramya rate. Liqui d-bas ed sampl ing may decre ase, but will not elimi von, false negat ramya resul ts. A negat ramya resul t does not precl ude the prese nce and/o r devel opmen t of disea se, since the prese nce of abnor mal cells in the sampl e depen ds on the locat ion of the lesio n and sampl ing techn ique. Case nued regul ar scree vito is the best metho d of cance r preve ntion . If repor ray cytol ogic findi ng do not corre late with physi carlos and/o r histo rical findi ngs, sunil hwang tigat ion is recom marge d, as clini [place]au [place] nted. Not Available [facility] (Lab) [address], [place], [address], 01/10/2024 15:14:05 Result Notes None recorded. Problems Name Problem SNOMED Code Status Onset Date Resolution Date Notes Provider Name and Address Organization Details Recorded Time SNOMED CT Concept Completed 201606/25/2021 Encntr for general adult medical exam w/o abnormal findings; Practice ID: [id number] [place] [facility] 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 20:29:10 Screenin g for malignan t neoplasm of rectum Completed 201606/25/2021 Encounter for screening for malignant neoplasm of rectum;Pr actice ID: [id number] [place] [facility] 20:29:03 Adult health examinat ion Completed 201106/25/2021 Routine Medical Exam;Sina rded Elsewhere : No Locati on: [facility] So urce: EHR Chron ic: N Practic e ID: 0001 Bill able Time: 01:30:00 PM [place] [facility] 1 20:28:50 Screenin g for malignan t neoplasm of cervix Completed 201106/25/2021 Screening for malignant neoplasms of the cervix;Re corded Elsewhere : No Locati on: [facility] So urce: EHR Chron ic: N Practic e ID: 0001 Bill able Time: 01:30:00 PM [place] [facility] 1 20:29:00 i alex medical examinat ion Completed 201106/25/2021 Gynecolog ical Examinati on;Record ed Elsewhere : No Locati on: [facility] So urce: EHR Chron ic: N Practic e ID: 0001 Bill able Time: 01:30:00 PM [place] [facility] 20:29:13 Incomple te uterovag inal prolapse [id number] Completed 201806/25/2021 2nd degree uterine prolapse; Recorded Elsewhere : No Locati on: [facility] So urce: EHR Chron ic: N Practic e ID: 0001 Bill able Time: 03:30:00 PM [place] [facility] 20:28:57 Disorder of pelvic region of trunk Completed 201806/25/2021 Cystocele ;Recorded Elsewhere : No Locati on: [facility] So urce: EHR Chron ic: N Practic e ID: 0001 Bill able Time: 03:30:00 PM [place] [facility] 20:28:54 Problem Notes None recorded. Procedures Surgical History Date Name Laterality Status Provider Name and Address Organization Details Recorded Time 10/19/19 24 Date of Last Mammogram completed [facility] 01/06/2024 14:35:16 06/29/20 22 Date of Last Pap Smear completed [facility] 01/06/2024 14:34:55 04/16/20 20 completed [place] [facility] 06/25/2021 20:30:21 03/09/20 19 Date of Last Colonoscopy completed [facility] 01/06/2024 14:37:32 01/08/20 19 Colonoscopy completed [place] [facility] 06/29/2022 11:01:14 06/09/20 12 lumpectomy of breast completed Joanne Mcmanus, [facility] [address], [place], [address], [facility] 06/26/2021 11:10:00 03/04/20 12 non-surgical breast biopsy completed [facility] 06/29/2022 10:45:34 01/03/19 86 Tubal Ligation completed [facility] 06/29/2022 11:01:14 Imaging Results None recorded. Procedure Notes None recorded. Medical Equipment None Reported. Allergies No known drug allergies Medications Name Sig Start Date Stop Date Status Note LastModified by Organization Details LastModified Time Evista 60 mg tablet 10/20 completed Prescrib ed Elsewher e: Yes Loca tion: [facility] odify By: ric lezama DateTime : 05/03/20 13 03:30:00 PM Not Available Not Available Not Available benzonata te 200 mg capsule TAKE 1 CAPSULE BY MOUTH THREE TIMES DAILY UNITL DIRECTED TO STOP 06/29 completed Not Available Not Available Not Available prednison e 20 mg tablet 06/29 completed Not Available Not Available Not Available mupirocin 2 % topical ointment 06/29 completed Not Available Not Available Not Available Multi-Vit with Fluoride and Iron 0.25 mg-10 mg/mL oral drops 01/04 completed Prescrib ed Elsewher e: Yes Loca tion: [facility] odify By: mariajose Olvera nter DateTime : 01/27/20 12 05:59:02 PM Not Available Not Available Not Available Calcium 500 + D 500 mg-5 mcg (200 unit) tablet 05/03 completed Prescrib ed Elsewher e: Yes Loca tion: [facility] odify By: solomon lange DateTime : 01/28/20 12 01:30:00 PM Not Available Not Available Not Available rosuvasta tin 5 mg tablet TAKE 1 TABLET BY MOUTH ONCE DAILY AT BEDTIME active Not Available Not Available No t Available Calcio Sera 500 mg tablet 01/04 completed Prescrib ed Elsewher e: Yes Loca tion: Neri portillo [facility] odify By: solomon lange DateTime : 05/03/20 13 03:30:00 PM Not Available Not Available Not Available Vitamin D3 10 mcg (400 unit) capsule active Prescrib ed Elsewher e: Yes Loca tion: Neri portillo [facility] odify By: solomon lange DateTime : 05/03/20 13 03:30:00 PM Not Available Not Available Not Available Fish Oil 100 mg-160 mg-1,000 mg capsule 06/05 completed Prescrib ed Elsewher e: Yes [facility] odify By: solomon lange DateTime : 01/28/20 12 01:30:00 PM Not Available Not Available Not Available Complete Multi 50+ active Not Available Not Available No t Available Calcium Magnesium active Not Available Not Available No t Available Ezallor Sprinkle 5 mg capsule 06/26 completed Prescrib ed Elsewher e: Yes [facility] By: ric lezama DateTime : 10/24/19 09:45:00 AM Not Available Not Available Not Available Vitals Date Recorded Systolic blood pressure Diastolic blood pressure Provider Name and Address Organization Details Last Updated DateTime 01/06/2024 122 mm[Hg] 80 mm[Hg] Joanne Mcmanus, [facility] [address], [place], [address], [facility] 01/07/2024 10:20:27 Date Recorded Body height Body mass index (BMI) Body weight Provider Name and Address Organization Details Last Updated DateTime 01/06/2024 170.18 cm 29.6 kg/m2 12051.96 g Yenifer Stovall [facility] 01/06/2024 14:33:42 Date Recorded Body height Body mass index (BMI) Body weight Systolic blood pressure Diastolic blood pressure Provider Name and Address Organization Details Last Updated DateTime 06/26/2021 170.18 cm 29.4 kg/m2 68721.37 g 126 mm[Hg] 83 mm[Hg] [place] [facility] 1 11:00:21 Date Recorded Body height Body mass index (BMI) Body weight Systolic blood pressure Diastolic blood pressure Provider Name and Address Organization Details Last Updated DateTime 06/29/2022 170.18 cm 31 kg/m2 10923.29 g 124 mm[Hg] 80 mm[Hg] [place] [facility] 2 11:00:41 Social History Question Answer Notes LastModified by Organizat ion Details LastModified Time Tobacco Smoking Status Never Smoker [place] [facility] 06/29/2022 11:01:10 Do You Have An Advance Directive? No Information n ot available 06/29/2022 How Many Years Have You Consumed Alcohol? 40 Information not available 06/29/2022 Are You Blind Or Do You Have Difficulty Seeing? No Information n ot available 06/25/2021 What Is Your Level Of Caffeine Consumption? Moderate Information not available 06/29/2022 How Much Tobacco Do You Chew? None Information not available 06/29/2022 In The 14 Days Before Symptom Onset, Have You Had Close Contact With A Laboratory-confirm ed COVID-19 While That Case Was Ill? No Information n ot available 06/29/2022 In The 14 Days Before Symptom Onset, Have You Had Close Contact With A Person Who Is Under Investigation For COVID-19 While That Person Was Ill? No Information not available 06/29/2022 Have You Been To An Area Known To Be High Risk For COVID-19? No Information not available 06/29/2022 Are You Deaf Or Do You Have Serious Difficulty Hearing? No Information not available 06/25/2021 What Type Of Diet Are You Following? REGULAR Information n ot available 06/25/2021 What Is The Highest Grade Or Level Of School You Have Completed Or The Highest Degree You Have Received? [id number] Information not available 06/29/2022 Do You Use Your Seat Belt Or Car Seat Routinely? Yes Information not available 06/25/2021 Do You Have Smoke And Carbon Monoxide Detectors In Your Home? Yes Information not available 06/25/2021 How Much Tobacco Do You Smoke? No Information not available 06/29/2022 Do You Use Sunscreen Routinely? Yes Information not available 06/25/2021 How Many Years Have You Smoked Tobacco? 0 Information not available 06/29/2022 Have You Used IV Drugs? No Information not available 06/29/2022 Do You Have Difficulty Walking Or Climbing Stairs? No Information not available 06/29/2022 Sex: Unknown Functional Status Question Answer Note LastModified by Organizat ion Details LastModified Time Do you use any illicit or recreational drugs? No Information not available 06/25/2021 What is your level of alcohol consumption? Occasional Information not available 06/25/2021 Are you able to walk? YESWOREST Information not available 06/25/2021 Are you able to care for yourself? Yes Information n ot available 06/29/2022 What is your occupation? Retired Information not available 06/29/2022 Do you have difficulty dressing or bathing? No Information not available 06/29/2022 What is your exercise level? Moderate Information not available 06/29/2022 Mental Status Question Answer Note LastModified by Organization D etails LastModified Time Do you feel stressed (tense, restless, nervous, or anxious, or unable to sleep at night)? [id number] Information not available 06/29/2022 Family History Relationship Description Onset Age of this Age Resolved Age Notes LastModified by Organization Details LastModified Time Mother Malignant lymphoma [email or web address] Not available 2023 14:27:12 Mother Malignant tumor of breast Not available 2021 11:00:49 Mother Anemia Not available 11:00:49 Mother Malignant neoplasm of lung Not available 2021 11:00:49 Maternal Grandmother Diabetes mellitus Not available 2021 11:00:49 Father Diabetes mellitus Not available 2021 11:00:49 Father Hypertensive disorder Not available 2021 11:00:49 Paternal Aunt Malignant tumor of breast Not available 2021 11:00:49 Brother Diabetes mellitus Not available 2021 11:00:49 Brother Malignant tumor of colon 79 cause of Not available 01/06/2024 14:38:38 Medical History Condition Response Breast Problem Y Other Y High Cholesterol Y Gynecological History Statement/Question Response Abnormal Pap N Date of Last Mammogram 10/19/2023 STIs/STDs N HPV Vaccine N 04/16/2020 Current Control Method Menopause If Post Menopausal, Age at Menopause 48 Date of Last Colonoscopy 03/09/2019 Sexually Active? N Menses Monthly N Date of DEXA bone scan 04/16/2020 Date of Last Pap Smear 06/29/2022 Sexual Problems? N LMP Unknown Obstetrics History GPAL:G 2 P 0 0 0 2 Type Value Living 2 Total 2 Past Encounters Encounter ID Performer Location Encounter Start Date Encounter Closed Date Diagnosis/Indication Diagnosis SNOMED-CT Code Diagnosis ICD10 Code Diagnosis Note [id number] Joanne Mcmanus [facility] [address] [address] 06/26/2021 10:30:40 06/26/2021 11:47:54 Gynecologic examination 81945925 Z01.419 Take Calcium with Vitamin D 12-1500mg daily. Do monthly self breast exams. It is advised to get annual flu shot in the fall and she could obtain at [facility] or [facility] care clinic. If you haven't received the Tdap vaccine in the last 10 years you should obtain one as well. Have mammogram yearly, bone density every 2-3 years and colonoscop y every 5-10 years depending on findings and history. Engage in daily exercise of low impact aerobic exercise 45-60 minutes 4-5 times weekly. Avoid tobacco and illicit drugs as well as using moderation with alcohol intake less than 1-2 8 oz beverages daily. This lifestyle behavior pattern will lead to less health conditions and longer life span. If BMI greater than 25 weight watchers or dietary consult advised. Questions have been answered. Patient appears to understand instructio ns, but if you have any further questions call or respond to this email Pap/hpv due 2021 unless otherwise indicated Discussed pap/hpv guidelines .USPSTF recommends against screening for cervical cancer in women older than 65yo who have had adequate prior screening & are not otherwise at high risk for cervical cancer. Decline need std screen-los t spouse 2019. Not current SA.Mammo done-saw a specialist for a left breast mass removed, benignGene tic screen done-negDe xa 2019 (next due 2021)Colon -UTD PCP [id number] Joanne Mcmanus [facility] [address] [address] 06/29/2022 10:46:47 06/29/2022 11:12:45 Gynecologic examination 63406655 Z01.419 Take Calcium with Vitamin D 12-1500mg daily. Do monthly self breast exams. It is advised to get annual flu shot in the fall and she could obtain at [facility] or [facility] care clinic. If you haven't received the Tdap vaccine in the last 10 years you should obtain one as well. Have mammogram yearly, bone density every 2-3 years and colonoscop y every 5-10 years depending on findings and history. Engage in daily exercise of low impact aerobic exercise 45-60 minutes 4-5 times weekly. Avoid tobacco and illicit drugs as well as using moderation with alcohol intake less than 1-2 8 oz beverages daily. This lifestyle behavior pattern will lead to less health conditions and longer life span. If BMI greater than 25 weight watchers or dietary consult advised. Questions have been answered. Patient appears to understand instructio ns, but if you have any further questions call or respond to this email Pap/hpv sentSTD Screen declined )() Genetic Screen discussedC olon Screen [address]Dexa Screen [address] [employer] PCPMammo ordered Screening for osteoporosis 029970597 Z13.820 [id number] [facility] [address] [address] 01/06/2024 14:26:00 01/07/2024 10:23:14 Gynecologic examination 43187845 Z01.419 Z11.51 Take Calcium with Vitamin D 12-1500mg daily. Do monthly self breast exams. It is advised to get annual flu shot in the fall and she could obtain at [facility] or [facility] care clinic. If you haven't received the Tdap vaccine in the last 10 years you should obtain one as well. Have mammogram yearly, bone density every 2-3 years and colonoscop y every 5-10 years depending on findings and history. Engage in daily exercise of low impact aerobic exercise 45-60 minutes 4-5 times weekly. Avoid tobacco and illicit drugs as well as using moderation with alcohol intake less than 1-2 8 oz beverages daily. This lifestyle behavior pattern will lead to less health conditions and longer life span. If BMI greater than 25 weight watchers or dietary consult advised. Questions have been answered. Patient appears to understand instructio ns, but if you have any further questions call or respond to this email Pap/hpv sent USPSTF recommends against screening for cervical cancer in women older than 65yo, those who've had a hysterecto my for non-cancer indication s, & who have had adequate prior screening & are not otherwise at high risk for cervical cancer. STD Screen-dec lined ()G enetic Screen discussedC olon Screen 2019 PCPDexa Screen PCPRoutine Labs PCPMammo specialist /PCP Health Concerns Section Related Observation LastModified by Organization Detai ls LastModified Time None Recorded Concern Status LastModified by Organization Details LastModified Time None Recorded Advance Directives Directive N: Payers Insurance Date Sequence Insurance Name Policy Number Policy Baltazar Covered Member ID Baltazar Member ID Guarantor Name 01/05/2024 1 [employer] - DOS PRIOR TO 21 - [facility] B[employer] [id number] Justin Delarosa [id number] 01/06/2024 1 [employer] (MEDICARE REPLACEMENT/A DVANTAGE - PPO) Justin Delarosa [id number] 01/05/2024 1 [employer] - DOS PRIOR TO 21 - [facility] BENEFITS PLAN Justin Delarosa [id number] 01/05/2024 1 [employer] - US NOW (INDEMNITY) Justin Delarosa [id number] Notes Date Note Type Note Provider Name and Address Organization Details Recorded Time 06/26/2021 text/html 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 Relations Analyst Post-MenopausalRe ported bypatient.Menopau andi Symptoms:no menopausal symptoms; normal vaginal lubrication Vaginal Bleeding:history of menopause having occurred; no history of post menopausal bleeding Urinary Symptoms:no hematuria; no incontinence; no nocturia; no urinary frequency Vulva:no genital lesion; no vulvar atrophy Vagina:normal vaginal discharge; no vaginal atrophy Breast:no breast lump; no nipple discharge; no breast pain Sexual Complaints:no sexual complaints Psychological Symptoms:no depression; no anxiety Preventive Measures:encourag e regular mammograms starting age 40; encourage self breast examination; encourage regular exercise; encourage no tobacco use; mammogram performed within the past year; history of recent colonoscopy Joanne Mcmanus [facility] [address], [place], [address], [facility] 06/26/2021 11:19:49 06/29/2022 text/html 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 Relations Analyst Post-MenopausalRe ported bypatient.Menopau andi Symptoms:no menopausal symptoms; normal vaginal lubrication Vaginal Bleeding:history of menopause having occurred; no history of post menopausal bleeding Urinary Symptoms:no hematuria; no incontinence; no nocturia; no urinary frequency Vulva:no genital lesion; no vulvar atrophy Vagina:normal vaginal discharge; no vaginal atrophy Breast:no breast lump; no nipple discharge; no breast pain Sexual Complaints:no sexual complaints Psychological Symptoms:no depression; no anxiety Preventive Measures:encourag e regular mammograms starting age 40; encourage self breast examination; encourage regular exercise; encourage no tobacco use; mammogram performed within the past year; history of recent colonoscopy; needs to schedule bone density [facility] [address], [place], [address], [facility] 06/29/2022 11:10:30 01/06/2024 text/html 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 Relations Analyst Post-MenopausalRe ported bypatient.[place] andi Symptoms:no menopausal symptoms; normal vaginal lubrication Vaginal Bleeding:history of menopause having occurred; no history of post menopausal bleeding Urinary Symptoms:no hematuria; no incontinence; no nocturia; no urinary frequency Vulva:no genital lesion; no vulvar atrophy Vagina:normal vaginal discharge; no vaginal atrophy Breast:no breast lump; no nipple discharge; no breast pain Sexual Complaints:no sexual complaints Psychological Symptoms:no depression; no anxiety Preventive Measures:encourag e regular mammograms starting age 40; encourage self breast examination; encourage regular exercise; encourage no tobacco use; mammogram performed within the past year; history of recent colonoscopy Joanne Mcmanus, [facility]- [address], [place], [address], [facility] 01/07/2024 10:22:34 OBGyn Episode Ob Episode Information Episode Created Date Number of Fetuses Patient Bloodtype Patient rh Status Prepregnancy Weight lbs Domestic Partner Domestic Partner Phone Father Name Electrical Contractor Status 06/26/20 21 1 CLOSED Fetus Data First Name Last Name Admitted to NICU Weight (g) Sex Living Outcome Pediatric Complications Fetus ID Race Codes Race Delivery Type F [id number] Vaginal Delivery Nando Calculation Initial Nando Date Initial Exam Date Initial Exam Provider Initial Ultrasound Date Last Menstrual Period Date Ultra Sound Weeks Gestation 0 Eighteen To Twenty Week Nando Update Ultra Sound Date Fundal Height At Umbil Quickening Date Ultra Sound Latest Weeks Gestation Final Nando Confirmed By Final Nando Confirmed Date Final Nando Date Ultra Sound Latest Days Gestation 0 0 Menstrual History Last Menstrual Date Menses Monthly On Bcp Conception Prior Menses Frequency Hcg Plus Date Menarche Onset Age Delivery Information Delivery Date Delivery Type Labor Anesthesia Weeks Gestation Incision Type Labor Labor Length Hrs Delivered By Post Complications Tubal Sterilization Discharge Date Comments 6 Discharge Information Feeding Method Contraceptive Method Maternal HG B and HCT Levels Ob Episode Information Episode Created Date Number of Fetuses Patient Bloodtype Patient rh Status Prepregnancy Weight lbs Domestic Partner Domestic Partner Phone Father Name Electrical Contractor Status 06/26/20 21 1 CLOSED Fetus Data First Name Last Name Admitted to NICU Weight (g) Sex Living Outcome Pediatric Complications Fetus ID Race Codes Race Delivery Type M [id number] Vaginal Delivery Nando Calculation Initial Nando Date Initial Exam Date Initial Exam Provider Initial Ultrasound Date Last Menstrual Period Date Ultra Sound Weeks Gestation 0 Eighteen To Twenty Week Nando Update Ultra Sound Date Fundal Height At Umbil Quickening Date Ultra Sound Latest Weeks Gestation Final Nando Confirmed By Final Nando Confirmed Date Final Nando Date Ultra Sound Latest Days Gestation 0 0 Menstrual History Last Menstrual Date Menses Monthly On Bcp Conception Prior Menses Frequency Hcg Plus Date Menarche Onset Age Delivery Information Delivery Date Delivery Type Labor Anesthesia Weeks Gestation Incision Type Labor Labor Length Hrs Delivered By Post Complications Tubal Sterilization Discharge Date Comments 2 Discharge Information Feeding Method Contraceptive Method Maternal HG B and HCT Levels
--- OUTSIDE RECORDS SUMMARY | 2025-01-18 12:08 | XMS_ITS | Encounter Summary ---
Author Organization [facility] Healthcare Address [address] [place] [address] Care Team Providers Care Destination Imagination Coordinator Name Role Phone Batsheva Underwood NP Primary Care Provider [phone] Encounter Details Date Type Department Care Team (Late st Contact Info) Description 12/18/2024 Results Follow-Up [facility] Primary Care at [address] [place] [address] Batsheva Underwood NP [address] [place] [address] Hepatitis B Surface Antigen Blood, Hepatitis B core antibody, total Blood, Hepatitis B surface antibody (immune status) Blood, Additional followed-up results: 9 Social History Tobacco Use Types Packs/Day Years Used Date Smoking Tobacco: Never Smokeless Tobacco: Never PHQ-2 Answer Date Recorded PHQ-2 Total Score (If total score is 3 or more points, staff should administer the PHQ-9) 0 12/15/2024 Comments Unknown Sex and Gender Information Value Date Recorded Sex Assigned at Not on file 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
== END 2025-01-18 11:03 | disposition home or self-care (01) ==
LOC: ANHIMG 11:07
PROVIDERS: PCP Nurse Practitioner; Visit Provider Nurse Practitioner
DX: M85.89 Other specified disorders of bone density and structure, multiple sites (principal); Z78.0 Asymptomatic menopausal state
CPT/HCPCS: 77080